=== PATIENT | female | born 1945 | race Caucasian/White ===

== ENCOUNTER 2016-12-13 06:10 | Inpatient (IN) | payer MEDICARE, MEDICAID ==
[~2016-12-13] VITALS: Ht 160 cm; Wt 76.9 kg
--- NOTE | ~2016-12-13 | FD ---
ADMIT: 12/13/2016 RM/LOC: 633 [facility] MR#: [id number] 2620 [facility] [address] [place] [id number] GONZALEZ PETERSASHLEY Jacobson [address] [address] Final Diagnosis SEX: F AGE: 71 : 1945 ADMISSION DATE: 12/13/2016 DISCHARGE DATE: 12/14/2016 FINAL DIAGNOSIS: Hiatal hernia. PROCEDURE: Laparoscopic hiatal hernia repair and gastropexy. KITA Arita / Dyllan Farah MD / naveen JOB #: [id number] CC: Dyllan Farah MD, Attending Physician Alvaro Falcon MD, Family Physician
--- NOTE | 2016-12-14 09:58 | CO ---
ADMIT: 12/13/2016 RM/LOC: 633 [facility] MR#: [id number] 2620 [facility] [address] [place], [place] [address] PETERS, YESENIA Jacobson [address] [address] Consultation SEX: F AGE: 71 : 1945 DATE OF CONSULTATION: 12/13/2016 ATTENDING PHYSICIAN: Dyllan Farah CONSULTING PHYSICIAN: Conrado Verde MD REASON FOR CONSULT: Medical evaluation in the setting of a patient with recent hiatal hernia repair, history of hypertension, mixed connective tissue disease, asthma. HISTORY OF PRESENT ILLNESS: The patient is a very pleasant 71-year-old female with a longstanding history of hiatal hernia. Intermittent melena. Iron deficiency anemia. Underwent hiatal hernia repair with and gastropexy. Sounds like it was quite an involved surgery by reading the op report. The patient currently denies any shortness of breath. No fevers. A little bit of pain but overall states is okay and tolerable. No recent chest pain. Did have recent sinusitis which she took antibiotics this last week and feels much improved from that. No more fevers over the last 24-48 hours. [place] like her symptoms had resolved. PAST MEDICAL HISTORY: 1. Hypertension. 2. Chronic back pain. 3. Mixed connective tissue disease. 4. Iron deficiency anemia. 5. Spinal stenosis, lumbar region. 6. Raynaud. 7. History of asthma. PAST SURGICAL HISTORY: Hysterectomy. FAMILY HISTORY: Cancer in mother and father. MEDICATIONS: She is on: 1. Flonase. 2. Guaifenesin. 3. Plaquenil. 4. Lamictal. 5. Omeprazole. 6. Symbicort. 7. Clonazepam. 8. Amlodipine. 9. Proventil p.r.n. Please see list for full details. REVIEW OF SYSTEMS: As per HPI. Otherwise, completely reviewed and negative. PHYSICAL EXAMINATION: VITAL SIGNS: Temperature 97.9, pulse 60, respiratory ADMIT: 12/13/2016 RM/LOC: 633 [facility] MR#: [id number] [address] [address] YESENIA PETERS [address] [address] Consultation SEX: F AGE: 71 : 1945 rate 20. She is saturating 97% on room air. Blood pressure 140/63. GENERAL: She is alert and oriented x3. No acute distress. Very pleasant female. HEENT: Normocephalic, atraumatic. Pupils equal, round, and reactive to light and accommodation. Extraocular muscles intact. Moist mucous membranes. NECK: No lymphadenopathy. Soft, supple. Trachea midline. LUNGS: Clear to auscultation bilaterally. No wheezes, rales, or rhonchi. Rare expiratory wheeze. HEART: Regular rate and rhythm. No murmurs, rubs, or gallops. ABDOMEN: Soft, nontender, nondistended. Bowel sounds present. She has overall nontender, soft. She has her port access sites with dressing on it without much major bleeding. EXTREMITIES: No cyanosis, clubbing, or edema. MUSCULOSKELETAL: 5/5 strength in all 4 extremities. NEUROLOGICAL: No focal deficits noted. Cranial nerves II through XII grossly intact. LABORATORY AND X-RAY DATA: Her hemoglobin the other day on the was 10.8. Platelets 287. ASSESSMENT: 1. Status post hiatal hernia with gastropexy. 2. Hypertension. 3. History of asthma. 4. Mixed connective tissue disease. PLAN: At this point in time, we will continue her home medications. We will schedule her Proventil given her history of asthma and a little bit of wheezing on exam. Otherwise, she looks like she is doing great. Continue pain control. Check the hemoglobin and followup as already planned by primary team. We will continue to follow along. Please call if questions. Conrado Verde MD/ geraldine JOB #: [id number] CC: Dyllan Farah, Attending Physician Alvaro Falcon, Family Physician
[2016-12-14] MEDS ORDERED: VITAMIN D350000 UNIT PO (14:37)
[2016-12-14] MEDS ORDERED: PLAQUENIL DPS200 MG PO (14:37)
[2016-12-14] MEDS ORDERED: PRILOSEC DPS20 MG PO (14:37)
[2016-12-14] MEDS ORDERED: NORVASC DPS10 MG PO (14:37)
[2016-12-14] MEDS ORDERED: KLONOPIN DPS1 MG PO (14:37)
[2016-12-14] MEDS ORDERED: DAILY MULTIPLE1 EAC1 PO (14:38)
[2016-12-14] MEDS ORDERED: FEOSOL-DPS325 MG PO (14:38)
[2016-12-14] MEDS ORDERED: SYMBICORT80 MCG/6.9 IH (14:38)
[2016-12-14] MEDS ORDERED: PROAIR RESPICL90 MCG IH (14:38)
[2016-12-14] MEDS ORDERED: HYDROCODON-ACET15 ML PO (14:39)
[2016-12-14] MEDS ORDERED: FLONASE 0.05% D16 GM NS (14:39)
--- NOTE | 2016-12-17 12:25 | OR ---
ADMIT: 12/13/2016 RM/LOC: 633 [facility] MR#: [id number] [address] [facility] [address] [place], [place] [address] YESENIA PETERS [address] [address] Operative/Delivery Room Report SEX: F AGE: 71 : 1945 SURGERY DATE: 12/13/2016 SURGEON: Dyllan Farah MD PREOPERATIVE DIAGNOSIS: History of chronic anemia and Corona's ulcers with large hiatal hernia. POSTOPERATIVE DIAGNOSIS: Large hiatal hernia with incarcerated stomach. PROCEDURE: Laparoscopic repair of this hiatal hernia and gastropexy. STONEMASON HELPER: Yossi Atkinson MD who was necessary for adequate exposure, retraction at completion of this case. ANESTHESIA: General endotracheal tube. ESTIMATED BLOOD LOSS: 30 mL or less. INDICATION FOR PROCEDURE: Please see H and P. PROCEDURE IN DETAIL: After the risks, benefits, possible complications, and the alternatives had been explained, and informed consent had been obtained, the patient was taken back to the operating room, underwent general endotracheal tube anesthesia, and the surgical field was prepped and draped in a sterile manner. An incision was made in the left upper quadrant. The Veress needle was inserted, the abdomen was insufflated with CO2. I placed a 5 mm port on the left lateral side to this. Placed camera to that port site and then placed a large port, right kind of epigastric port right subcostal, one more left subcostal 5 mm port. Liver retractor was placed. Connected to the Govind arm to the bed. You can see the first picture of this hiatal hernia with the majority of the stomach up there and it was twisted and stuck. Actually difficult case and just the overall hiatal hernia extended the time of this case an extra 45 minutes. Slowly started working on the right whitley and trying to figure out exactly where the sac was and some of this kind of the gastrohepatic ligament and vessels coming through there, what will we could free up. Ultimately ended up going to the greater curvature, taking the short gastrics and working that up. Allowed me a little more freedom to get some of that stomach out of there and then slowly we were able to get to a spot where we have this the hernia sac for where I could start working it off everything, laterally anteriorly and then felt like we finally got things down and dissected out nicely and posteriorly. Then we started kind of removing the sac from the apex being careful not to cause any problems with the esophagus or stomach. There was a big kind of ball of extra fat there at the lesser curve, this was all freed up and straightened out. Still did not feel like we had a great amount for a length of the esophagus and the right whitley was pretty wimpy. I started closing the crural defect the hiatal hernia with multiple Ethibond Endo stitches and tie knot. About 3/4 up it closed quite nicely and then things got so thinned out that I was worried anything was really going to hold it, Dr. Atkinson was as well far as stitches. I had the ADMIT: 12/13/2016 RM/LOC: 633 [facility] MR#: [id number] [address] [address] YESENIA PETERS [address] [place] [address] Operative/Delivery Room Report SEX: F AGE: 71 : 1945 majority of it like I said, closed at this point, but I just felt anything else, we are going to more tension and tear kind of that right crural. There was just no muscle there. I did not feel patching that there was really anything even patch to, if I used a piece of AlloDerm or something of that nature, it would just get kind of stuck right up into this hole. I do think it was going to cover, there was nothing really to attach it to. So ended up doing then a gastropexy. I did not feel comfortable with trying to wrap around there and have it kind of trying re-curl up into the chest cavity. So, I created a gastropexy right along the kind of anterior whitley there and out along the triangular ligament with 4 different stitches, just pexing it along there of the stomach. Then I used a two more EndoStitches, used the suture passer, bringing those out down lower along the greater curve of the stomach. So, we are going to have a pexy in 2 different spots and that is seen in picture #3 and picture #4. I removed the liver retractor and then tied down the gastropexy stitches at the greater curve. Those appeared to not be under any significant tension and holding things in good position. I then removed any irrigation, saw no signs of any bleeding or complications. Injected some 0.5% Marcaine for pain control in the incision sites. Closed the fascia of large port site with an 0-Polysorb suture using the suture passer. All the ports were removed. The skin was all closed with 4-0 Monocryl. She tolerated it well. She was extubated and taken to recovery room in stable and satisfactory condition. Dyllan Farah MD/ geraldine JOB #: [id number] CC: Dyllan Farah, Attending Physician Alvaro Falcon, Family Physician
[2017-01-11] MEDS ORDERED: GERITOL COMPLE1 EACH PO (11:53)
[2017-01-11] MEDS ORDERED: ONDANSETRON ODT4 MG PO (11:54)
[2017-01-11] MEDS ORDERED: PHENERGAN DPS25 MG PO (11:56)
[2017-01-11] MEDS ORDERED: REGLAN DPS5 MG PO (11:56)
[2017-01-11] MEDS ORDERED: PROVENTIL2.5 MG/3 M IH (11:57)
[2017-01-28] MEDS ORDERED: VITAMIN D50000 UNIT PO (21:27)
[2017-01-28] MEDS ORDERED: FLONASE 0.05% D16 GM NS (21:28)
[2017-01-28] MEDS ORDERED: PLAQUENIL DPS200 MG PO (21:28)
[2017-01-28] MEDS ORDERED: ZOFRAN ODT4 MG PO (21:28)
[2017-01-28] MEDS ORDERED: PRILOSEC DPS20 MG PO (21:29)
[2017-01-28] MEDS ORDERED: KLONOPIN DPS1 MG PO (21:29)
[2017-01-28] MEDS ORDERED: PROVENTIL HFA6.7 GM IH (21:29)
[2017-01-28] MEDS ORDERED: GERITOL COMPLE1 EACH PO (21:30)
[2017-01-28] MEDS ORDERED: PHENERGAN DPS25 MG PO (21:30)
[2017-01-28] MEDS ORDERED: LEXAPRO DPS10 MG PO (21:30)
[2017-01-28] MEDS ORDERED: SYMBICORT80 MCG/6.9 IH (21:30)
[2017-01-28] MEDS ORDERED: FEOSOL-DPS325 MG PO (21:30)
[2017-01-28] MEDS ORDERED: KEFLEX-DPS500 MG PO (21:31)
[2017-01-28] MEDS ORDERED: XARELTO20 MG PO (21:31)
[2017-01-28] MEDS ORDERED: XARELTO15 MG PO (21:31)
[2017-01-28] MEDS ORDERED: ERYTHROMYCIN250 M1 GT (21:32)
[2017-01-28] MEDS ORDERED: MAALOX DPS30 ML PO (21:32)
[2017-01-28] MEDS ORDERED: TYLENOL DPS325 MG PO (21:33)
[2017-02-07] MEDS ORDERED: ZOFRAN ODT4 MG PO (17:43)
[2017-02-07] MEDS ORDERED: PROVENTIL HFA6.7 GM IH (17:43)
[2017-02-07] MEDS ORDERED: FLONASE 0.05% D16 GM NS (17:43)
[2017-02-07] MEDS ORDERED: KLONOPIN DPS1 MG PO (17:43)
[2017-02-07] MEDS ORDERED: XARELTO20 MG PO (17:44)
[2017-02-07] MEDS ORDERED: TYLENOL DPS325 MG PO (17:44)
[2017-02-07] MEDS ORDERED: COLACE-DPS100 MG PO (17:44)
[2017-02-07] MEDS ORDERED: SYMBICORT80 MCG/6.9 IH (17:44)
[2017-02-07] MEDS ORDERED: LORTAB LIQUID D15 ML GT (17:45)
[2017-02-07] MEDS ORDERED: COGENTIN DPS1 MG GT (17:45)
[2017-02-07] MEDS ORDERED: PRILOSEC DPS20 MG GT (17:45)
== END 2016-12-14 11:20 | disposition home or self-care (01) | DRG 327 ==
LOC: WOR 06:10 → 6PED 06:10 → WOR 06:10 → 6PED 09:42
PROVIDERS: ADMIT Surgery
PROC: 0BQR4ZZ (ICD-10-PCS; principal; 2016-12-13)
PROC: 0DS64ZZ Reposition Stomach, Percutaneous Endoscopic Approach (ICD-10-PCS; principal; 2016-12-13)
DX: K44.0 Diaphragmatic hernia with obstruction, without gangrene (principal); M35.1 Other overlap syndromes; K25.9 Gastric ulcer, unspecified as acute or chronic, without hemorrhage or perforation; F32.9 Major depressive disorder, single episode, unspecified; F41.9 Anxiety disorder, unspecified; J45.909 Unspecified asthma, uncomplicated; I10 Essential (primary) hypertension; K21.9 Gastro-esophageal reflux disease without esophagitis; M54.9 Dorsalgia, unspecified; G89.29 Other chronic pain; M48.06 Spinal stenosis, lumbar region; I73.00 Raynaud's syndrome without gangrene

== ENCOUNTER 2016-12-17 17:56 | Emergency (ER) | payer MEDICARE, MEDICAID ==
[~2016-12-17 17:56] MED LIST: DAILY MULTIPLE1 EAC1 PO; FEOSOL-DPS325 MG PO; FLONASE 0.05% D16 GM NS; HYDROCODON-ACET15 ML PO; KLONOPIN DPS1 MG PO; NORVASC DPS10 MG PO; PLAQUENIL DPS200 MG PO; PRILOSEC DPS20 MG PO; PROAIR RESPICL90 MCG IH; SYMBICORT80 MCG/6.9 IH; VITAMIN D350000 UNIT PO
--- NOTE | 2017-01-04 11:52 | ER ---
ADMIT: 12/17/2016 RM/LOC: ER [facility] MR#: [id number] [address] [facility] [address] [place], [place] [address] MICAELA PETERSA Kavon [address] [address] Emergency Room Report SEX: F AGE: 71 : 1945 DATE: 12/17/2016 ADDENDUM: A 71-year-old female coming in with loose stools. She has only had liquids since her postop Tello, which was on Monday. She is concerned she has diarrhea. We gave her one Lomotil. She can use Imodium. I said that this should subside as they allow her to use the solid foods, but she is not allowed any quite yet. She should follow up as needed. She says she is a little nauseated, but that could be from the pain pills she takes, [place]. Also, wonder that can make her constipated, so we do not want her overshooting it. Follow up as directed. CONDITION ON DISCHARGE: Good. Alvaro Abdullahi MD/ geraldine JOB #: [id number] CC: Alvaro Abdullahi MD, Attending Physician
[2017-01-11] MEDS ORDERED: GERITOL COMPLE1 EACH PO (11:53)
[2017-01-11] MEDS ORDERED: ONDANSETRON ODT4 MG PO (11:54)
[2017-01-11] MEDS ORDERED: PHENERGAN DPS25 MG PO (11:56)
[2017-01-11] MEDS ORDERED: REGLAN DPS5 MG PO (11:56)
[2017-01-11] MEDS ORDERED: PROVENTIL2.5 MG/3 M IH (11:57)
[2017-01-28] MEDS ORDERED: VITAMIN D50000 UNIT PO (21:27)
[2017-01-28] MEDS ORDERED: FLONASE 0.05% D16 GM NS (21:28)
[2017-01-28] MEDS ORDERED: PLAQUENIL DPS200 MG PO (21:28)
[2017-01-28] MEDS ORDERED: ZOFRAN ODT4 MG PO (21:28)
[2017-01-28] MEDS ORDERED: PRILOSEC DPS20 MG PO (21:29)
[2017-01-28] MEDS ORDERED: PROVENTIL HFA6.7 GM IH (21:29)
[2017-01-28] MEDS ORDERED: KLONOPIN DPS1 MG PO (21:29)
[2017-01-28] MEDS ORDERED: FEOSOL-DPS325 MG PO (21:30)
[2017-01-28] MEDS ORDERED: PHENERGAN DPS25 MG PO (21:30)
[2017-01-28] MEDS ORDERED: LEXAPRO DPS10 MG PO (21:30)
[2017-01-28] MEDS ORDERED: GERITOL COMPLE1 EACH PO (21:30)
[2017-01-28] MEDS ORDERED: SYMBICORT80 MCG/6.9 IH (21:30)
[2017-01-28] MEDS ORDERED: XARELTO15 MG PO (21:31)
[2017-01-28] MEDS ORDERED: XARELTO20 MG PO (21:31)
[2017-01-28] MEDS ORDERED: KEFLEX-DPS500 MG PO (21:31)
[2017-01-28] MEDS ORDERED: ERYTHROMYCIN250 M1 GT (21:32)
[2017-01-28] MEDS ORDERED: MAALOX DPS30 ML PO (21:32)
[2017-01-28] MEDS ORDERED: TYLENOL DPS325 MG PO (21:33)
[2017-02-07] MEDS ORDERED: FLONASE 0.05% D16 GM NS (17:43)
[2017-02-07] MEDS ORDERED: KLONOPIN DPS1 MG PO (17:43)
[2017-02-07] MEDS ORDERED: PROVENTIL HFA6.7 GM IH (17:43)
[2017-02-07] MEDS ORDERED: ZOFRAN ODT4 MG PO (17:43)
[2017-02-07] MEDS ORDERED: COLACE-DPS100 MG PO (17:44)
[2017-02-07] MEDS ORDERED: XARELTO20 MG PO (17:44)
[2017-02-07] MEDS ORDERED: TYLENOL DPS325 MG PO (17:44)
[2017-02-07] MEDS ORDERED: SYMBICORT80 MCG/6.9 IH (17:44)
[2017-02-07] MEDS ORDERED: LORTAB LIQUID D15 ML GT (17:45)
[2017-02-07] MEDS ORDERED: COGENTIN DPS1 MG GT (17:45)
[2017-02-07] MEDS ORDERED: PRILOSEC DPS20 MG GT (17:45)
== END 2016-12-17 19:34 | disposition home or self-care (01) ==
LOC: ER 17:56
DX: K91.89 Other postprocedural complications and disorders of digestive system (principal); R19.7 Diarrhea, unspecified; R11.0 Nausea; I10 Essential (primary) hypertension; Z79.899 Other long term (current) drug therapy

== ENCOUNTER 2017-01-06 14:23 | Inpatient (IN) | payer MEDICARE, MEDICAID ==
[~2017-01-06] VITALS: Ht 160 cm; Wt 70.8 kg
--- NOTE | ~2017-01-06 | CO ---
ADMIT: 01/06/2017 RM/LOC: 422 [facility] MR#: [id number] 2620 [facility] [address] [place], [place] [address] YESENIA PETERS [address] [address] Consultation Report SEX: F AGE: 71 : 1945 Corrected: 01/09/2017 0742 njv/01/09/2017 1047 djs DATE OF CONSULTATION: 01/06/2017 ATTENDING PHYSICIAN: Alvaro Falcon CONSULTING PHYSICIAN: Yossi Atkinson MD HISTORY OF PRESENT ILLNESS: The patient is a 71-year-old female, well known to Dr. Farah, who recently had done a laparoscopic hiatal hernia repair, for anemia I believe, and Corona ulcers. She did not have a Tello fundoplication done, but did have a gastropexy done to keep the hernia reduced. For her postprocedure, she had initially done well, but she has developed some issues here recently with nausea, vomiting, and diarrhea. The diarrhea was quite significant. She has had some antibiotics I believe; some Bactrim and Flagyl and the diarrhea has since stopped, but has continued to have here over the last couple days, worsening nausea and vomiting. Denies really any significant abdominal discomfort. PAST MEDICAL HISTORY: Includes hypertension, low-back pain, anemia, spinal stenosis, Raynaud disease, and asthma. PAST SURGICAL HISTORY: Includes hysterectomy and a recent hiatal hernia repair done laparoscopically about a month ago. ALLERGIES: SHE HAS NO ALLERGIES. MEDICATIONS: Outlined in the hospital chart. FAMILY HISTORY: Noncontributory. SOCIAL HISTORY: Nondrinker and nonsmoker. REVIEW OF SYSTEMS: Denies headaches, chest pain, or shortness of breath. Admits to the nausea and vomiting. Denies abdominal discomfort. No hematologic, neurologic, or psychiatric issues. PHYSICAL EXAMINATION: GENERAL: She is afebrile. VITAL SIGNS: Stable. HEART: Regular. LUNGS: Clear. ABDOMEN: Soft and nondistended. Mildly tender over her left-sided subcostal port site as expected. No peripheral edema. No focal neurologic deficits. ASSESSMENT AND PLAN: The patient is a 71-year-old with persistent nausea and ADMIT: 01/06/2017 RM/LOC: 422 [facility] MR#: [id number] 2620 [facility] [address] [place], [place] [address] YESENIA PETERS [address] [place] [address] Consultation Report SEX: F AGE: 71 : 1945 vomiting. She has recovered from recent bout of diarrhea. At this point in time, her count is normal and her diarrhea has stopped. It does not sound like she is having any dysphagia issues. Ultimately, I suspect this is likely not a mechanical cause of her mechanical obstructive cause for her nausea or vomiting, but with fluid hydration if she does improve, she may need an upper GI series just to watch contrast goes through our esophagus in her stomach and exit her stomach make sure there was no obstructive pathology and if there is any concerns there, may ultimately need to do upper endoscopy evaluation, but suspect with conservative measures and fluid resuscitation, she will likely improve without more advanced intervention. Yossi Atkinson MD/ geraldine JOB #: [id number] CC: Alvaro Falcon, Attending Physician Alvaro Falcon, Family Physician Corrected: 01/09/2017 0742 njv/01/09/2017 1047 franko
[2017-01-11] MEDS ORDERED: GERITOL COMPLE1 EACH PO (11:53)
[2017-01-11] MEDS ORDERED: ONDANSETRON ODT4 MG PO (11:54)
[2017-01-11] MEDS ORDERED: PHENERGAN DPS25 MG PO (11:56)
[2017-01-11] MEDS ORDERED: REGLAN DPS5 MG PO (11:56)
[2017-01-11] MEDS ORDERED: PROVENTIL2.5 MG/3 M IH (11:57)
--- NOTE | 2017-01-20 10:23 | CO ---
ADMIT: 01/06/2017 RM/LOC: 422 [facility] MR#: [id number] 2620 [facility] [address] [place], [place] [address] YESENIA PETERS [address] [address] Consultation SEX: F AGE: 71 : 1945 DATE OF CONSULTATION: 01/06/2017 ATTENDING PHYSICIAN: Alvaro Falcon CONSULTING PHYSICIAN: Yossi Atkinson MD REASON FOR CONSULTATION: Persistent nausea and vomiting. HISTORY OF PRESENT ILLNESS: Yesenia is a very pleasant 71-year-old female, who is status post hiatal hernia repair back in November of this year, performed by Dr. Farah. Since her surgery, apparently she has had several episodes of nausea with emesis and diarrhea. She has been to her primary care doctor and to the ER multiple times where so far it looks like she was treated with p.o. Zofran and oral antibiotics. The Zofran worked well. However, the patient does not believe the oral antibiotics helped at all. She actually has been seen at our clinic by Dr. Farah in followup. I believe this was after her first episode where at that time pain resolved and the patient was doing well. This last episode of diarrhea happened about a week ago but stopped Easter Monday, so approximately 5 days ago. Her nausea and vomiting, however, started again Monday night. She describes her emesis as being black, but denies hematemesis. As of now, she has only been tolerating liquids. She denies any pain unless if you palpate in the left lower quadrant of her abdomen. Her last bowel movement was Monday. She also has had on and off chills since surgery. She has also had headaches. PAST MEDICAL HISTORY: Significant for hypertension, low back pain, anemia, spinal stenosis, Raynaud phenomenon, and asthma. PAST SURGICAL HISTORY: 1. Hiatal hernia repair in November of this year. 2. Hysterectomy. ALLERGIES: NO KNOWN DRUG ALLERGIES. MEDICATIONS: Well documented in chart. FAMILY HISTORY: Noncontributory. SOCIAL HISTORY: The patient denies any tobacco, alcohol, or illicit drug use. REVIEW OF SYSTEMS: CONSTITUTIONAL: The patient has had chills, but denies any fevers or night sweats. The rest of comprehensive 10-point review of systems was performed and all other systems are negative unless stated in HPI. PHYSICAL EXAMINATION: GENERAL: The patient is in no acute distress. She is alert and oriented. HEENT: Head is normocephalic and atraumatic. EOMS are intact. Conjunctivae ADMIT: 01/06/2017 RM/LOC: 422 [facility] MR#: [id number] [address] [address] YEESNIA PETERS [address] [place] [address] Consultation SEX: F AGE: 71 : 1945 free of icterus, erythema, or pallor. Pinnae, free of deformities. Nose, midline. No tracheal deviation. NECK: Supple. SKIN: Negative for jaundice, clubbing, edema, pallor, or cyanosis. LUNGS: Normal respiratory effort. HEART: Distal pulses intact. Regular rate and rhythm. ABDOMEN: Soft, nondistended, and tender in the left lower quadrant. NEURO: Grossly intact. ASSESSMENT: Persistent nausea and vomiting. PLAN: So far, the patient has been admitted and we will be receiving IV fluid resuscitation, antiemetics, and antibiotics. We will continue these measures and there is discussion of about potentially doing an EGD with her down the road. The final decision on upper endoscopy lies in the hands of Dr. Atkinson. In the meantime, we will watch her closely for any clinical progress. I discussed this plan with the patient to which she is in agreement of this plan, had all her questions answered and would like to proceed. Thank you for the consultation of this patient. KITA Arita / Yossi Atkinson MD / geraldine JOB #: [id number] CC: Alvaro Falcon, Attending Physician Alvaro Falcon, Family Physician
[2017-01-28] MEDS ORDERED: VITAMIN D50000 UNIT PO (21:27)
[2017-01-28] MEDS ORDERED: PLAQUENIL DPS200 MG PO (21:28)
[2017-01-28] MEDS ORDERED: ZOFRAN ODT4 MG PO (21:28)
[2017-01-28] MEDS ORDERED: FLONASE 0.05% D16 GM NS (21:28)
[2017-01-28] MEDS ORDERED: KLONOPIN DPS1 MG PO (21:29)
[2017-01-28] MEDS ORDERED: PROVENTIL HFA6.7 GM IH (21:29)
[2017-01-28] MEDS ORDERED: PRILOSEC DPS20 MG PO (21:29)
[2017-01-28] MEDS ORDERED: LEXAPRO DPS10 MG PO (21:30)
[2017-01-28] MEDS ORDERED: GERITOL COMPLE1 EACH PO (21:30)
[2017-01-28] MEDS ORDERED: SYMBICORT80 MCG/6.9 IH (21:30)
[2017-01-28] MEDS ORDERED: FEOSOL-DPS325 MG PO (21:30)
[2017-01-28] MEDS ORDERED: PHENERGAN DPS25 MG PO (21:30)
[2017-01-28] MEDS ORDERED: XARELTO15 MG PO (21:31)
[2017-01-28] MEDS ORDERED: XARELTO20 MG PO (21:31)
[2017-01-28] MEDS ORDERED: KEFLEX-DPS500 MG PO (21:31)
[2017-01-28] MEDS ORDERED: MAALOX DPS30 ML PO (21:32)
[2017-01-28] MEDS ORDERED: ERYTHROMYCIN250 M1 GT (21:32)
[2017-01-28] MEDS ORDERED: TYLENOL DPS325 MG PO (21:33)
--- NOTE | 2017-02-07 08:50 | HP ---
ADMIT: 01/06/2017 RM/LOC: 422 [facility] MR#: [id number] 2620 [facility] [address] [place], [place] [address] YESENIA PETERS [address] [address] History and Physical SEX: F AGE: 71 : 1945 DATE OF SERVICE: 01/06/2017 HISTORY OF PRESENT ILLNESS: Yesenia is a very pleasant 71-year-old female patient of Dr. Alvaro Falcon, who presented to the clinic today with complaints of persistent nausea and vomiting. She has been having frequent emesis since Monday. She has history of having gastropexy and hernia repair by Dr. Farah toward the end of November. Since then, she has had intermittent diarrhea as well as nausea. She was seen in the emergency room on December 17 for the diarrhea, it seemed to resolve itself within a few days. She was seen again on Monday in emergency room for persistent nausea and vomiting. At that time, they did a CT scan which was essentially within normal limits other than showing chronic cholelithiasis without evidence of cholecystitis and diverticulosis without evidence of diverticulitis. She did have a probable mild ileus with a few prominent loops of small bowel as well. At that time, they started her on Bactrim and Flagyl for possible diverticulitis. Since that time, she has continued to have frequent emesis. She states she throws up even small amounts of water and any fluids. She is even having a hard time keeping her pills down. She denies abdominal pain, fevers, chills, or body aches. She does complain of being fatigued. Denies chest pain, shortness of breath, or palpitations. Does have slight dizziness at times. She has not had a stool for the last couple of days, although, she has not eaten much either. While in clinic today, we went ahead and gave her 1 L of IV fluid and some IV Zofran to help with her nausea. While she was here, she did slow down her emesis for a short time. Abdominal flat plate was done in clinic today as well that showed no sign of ileus, but stone in her gallbladder was visualized. LABORATORY DATA: Labs done in clinic revealed a potassium of 2.9, sodium of 130, creatinine of 1.01. CBC showed a white blood cell count of 12.6, all of which is different from her labs that were drawn on Monday in the emergency room. PAST MEDICAL HISTORY: 1. Spinal stenosis. 2. Raynaud's. 3. Osteopenia. 4. Mixed connective tissue disease. 5. Iron-deficiency anemia. 6. Hypertension. PAST SURGICAL HISTORY: A knee scope and hysterectomy, and then recent gastropexy with hernia repair. FAMILY HISTORY: Both her mother and father are with a history of cancer. Two daughters, who are alive and well. One son alive and well and one son, who is . SOCIAL HISTORY: Denies alcohol use or abuse. Denies any recreational drug use or abuse. Does have a history of smoking, but this was only short-term and socially. ADMIT: 01/06/2017 RM/LOC: 422 [facility] MR#: [id number] [address] [place] [phone] [address] [place] [address] History and Physical SEX: F AGE: 71 : 1945 ALLERGIES: NO KNOWN DRUG ALLERGIES. MEDICATIONS: 1. Tylenol 1000 mg every 8 hours as needed for pain. 2. Albuterol nebulizer every 6 hours as needed for wheezing or shortness of breath. 3. Norvasc 10 mg p.o. daily. 4. Symbicort one puff as needed. 5. Klonopin 1 mg by mouth at bedtime. 6. Vitamin D 50,000 units twice a day on Monday and Monday. 7. Ferrous sulfate 325 mg three times a day with meals. 8. Flonase nasal spray as needed. 9. Mucinex 600 mg twice a day as needed. 10.Plaquenil 200 mg twice a day. 11.Lamictal 200 mg at bedtime. 12.Prilosec 40 mg per day. REVIEW OF SYSTEMS: Complete review of system was complete and otherwise negative as stated in HPI. PHYSICAL EXAMINATION: GENERAL: She is a fatigued woman, who appears slightly older than her stated age of 71. She is alert and appropriate, although, she is holding an emesis basin. VITAL SIGNS: Blood pressure 114/86, temp 36.4, pulse 100, respirations 16, and sats 98% on room air. SKIN: Warm and dry. No rashes. HEENT: Eyes, conjunctiva are clear. Pupils are reactive. Mouth and throat, she does have oral secretions are noted, no redness or swelling of her posterior pharynx. HEART: Regular rate and rhythm, slightly tachycardic. LUNGS: Clear throughout, no sign of respiratory distress. No adventitious. Lung sounds auscultated. ABDOMEN: Soft and round, bowel sounds hypoactive x4. Incisions are well healed. MUSCULOSKELETAL: Able to walk around clinic without issue. No obvious ADMIT: 01/06/2017 RM/LOC: 422 [facility] MR#: [id number] [address] [place] [id number] YESENIA PETERS [address] [place] [address] History and Physical SEX: F AGE: 71 : 1945 swelling. NEUROLOGIC: Alert and oriented. ASSESSMENT AND PLAN: We will go ahead and admit to [facility] for hypokalemia given her inability to keep oral medications down. I do not believe we would be able to replace her hypokalemia with oral medications. She has also had emesis since being in the clinic today. We will replace her electrolytes, start IV fluids. Consult Dr. Farah. I was able to speak with Dr. Farah regarding this patient earlier today, so he is aware that she is ill, but he is not aware of her admission yet. Case was discussed with Dr. Alvaro Falcon, who will take over her care at the hospital. All further orders per his request. Neeur Ibarra APRN / Alvaro Falcon MD / geraldine JOB #: [id number] CC: Alvaro Falcon, Attending Physician Alvaro Falcon, Family Physician
[2017-02-07] MEDS ORDERED: FLONASE 0.05% D16 GM NS (17:43)
[2017-02-07] MEDS ORDERED: PROVENTIL HFA6.7 GM IH (17:43)
[2017-02-07] MEDS ORDERED: KLONOPIN DPS1 MG PO (17:43)
[2017-02-07] MEDS ORDERED: ZOFRAN ODT4 MG PO (17:43)
[2017-02-07] MEDS ORDERED: XARELTO20 MG PO (17:44)
[2017-02-07] MEDS ORDERED: SYMBICORT80 MCG/6.9 IH (17:44)
[2017-02-07] MEDS ORDERED: TYLENOL DPS325 MG PO (17:44)
[2017-02-07] MEDS ORDERED: COLACE-DPS100 MG PO (17:44)
[2017-02-07] MEDS ORDERED: COGENTIN DPS1 MG GT (17:45)
[2017-02-07] MEDS ORDERED: PRILOSEC DPS20 MG GT (17:45)
[2017-02-07] MEDS ORDERED: LORTAB LIQUID D15 ML GT (17:45)
--- NOTE | 2017-02-08 08:30 | DS ---
ADMIT: 01/06/2017 RM/LOC: 422 [facility] MR#: [id number] 2620 [facility] [address] [place] [id number] YESENIA ANDERSON [address] [place] [address] Discharge Summary SEX: F AGE: 71 : 1945 ADMISSION DATE: 01/06/2017 DISCHARGE DATE: 01/10/2017 CONSULTATIONS: Yossi Atkinson MD FINAL DIAGNOSES: 1. Ileus improved. 2. Nausea and vomiting improved. 3. Status post gastropexy. 4. Questionable delayed gastric emptying. 5. Hypokalemia. REASON FOR ADMISSION: Please see H and P dictated by Neeru Ibarra APRN. However, Yesenia Anderson was admitted with nausea and vomiting following gastropexy. HOSPITAL COURSE: Admitted to the service of [facility] under the care of myself, Alvaro Falcon MD. Received consultations with Dr. Atkinson as well did undergo an EGD. Noted to have some esophageal retention of food secondary to some swelling. Also, presumptive delayed gastric emptying. Did aggressively treat her nausea. Received some antiemetics. She actually clinically improved to the point she was taking p.o., and she discharged to home. DISPOSITION: Home. DISCHARGE CONDITION: Stable. DISCHARGE MEDICATIONS: See medication reconciliation, it is reviewed and accurate. She will discharge to home. She will follow up with me in 2 weeks' time, and she will continue a gentle diet. Continue scheduled antiemetics. I discussed this plan with the patient, expressed understanding, was in agreement, and had no further questions. Alvaro Falcon MD/ modesto JOB #: [id number] CC: Alvaro Falcon MD, Attending Physician Alvaro Falcon MD, Family Physician
== END 2017-01-10 16:55 | disposition home or self-care (01) | DRG 389 ==
LOC: 4PCU 14:23
PROVIDERS: ADMIT Internal Medicine
DX: K56.7 Ileus, unspecified (principal); M35.1 Other overlap syndromes; J44.9 Chronic obstructive pulmonary disease, unspecified; E87.6 Hypokalemia; I10 Essential (primary) hypertension; R11.2 Nausea with vomiting, unspecified; E03.9 Hypothyroidism, unspecified; K80.20 Calculus of gallbladder without cholecystitis without obstruction; J45.909 Unspecified asthma, uncomplicated; K44.9 Diaphragmatic hernia without obstruction or gangrene; K57.90 Diverticulosis of intestine, part unspecified, without perforation or abscess without bleeding; M48.00 Spinal stenosis, site unspecified; I73.00 Raynaud's syndrome without gangrene; M85.879 Other specified disorders of bone density and structure, unspecified ankle and foot; Z87.891 Personal history of nicotine dependence; Z98.890 Other specified postprocedural states

== ENCOUNTER 2017-01-15 11:44 | Inpatient (IN) | payer MEDICARE, MEDICAID ==
[~2017-01-15] VITALS: Ht 160 cm; Wt 69.1 kg
[~2017-01-15 11:44] MED LIST changes: +GERITOL COMPLE1 EACH PO; +ONDANSETRON ODT4 MG PO; +PHENERGAN DPS25 MG PO; +PROVENTIL2.5 MG/3 M IH; +REGLAN DPS5 MG PO
--- NOTE | 2017-01-16 06:57 | HP ---
ADMIT: 01/15/2017 RM/LOC: 617 [facility] MR#: [id number] 2620 [facility] [address] [place], [place] [address] MICAELA PETERSA Kavon [address] [address] History and Physical SEX: F AGE: 71 : 1945 DATE OF SERVICE: CHIEF COMPLAINT: Nausea and vomiting. HISTORY OF PRESENT ILLNESS: This is a 71-year-old female, she has history of surgery for hiatal hernia just over a week ago. She was admitted approximately a week ago for persistent nausea and vomiting. At that time, she was then discharged few days ago, but unfortunately had continued symptoms. So, she presented for evaluation here today. She reports that she has had some problems of vomiting up undigested food. She reports that she had some chicken and peas few days ago, and last night, she vomited up some peas and she had the same thing happen this morning. We did a CAT scan, which showed a little postop changes, nothing severe. She was evaluated by surgery at last hospitalization. She had an esophagram and that showed some delayed emptying of the esophagus from the hiatal hernia repair and looks a little edematous. There was a little bit initial bolus when through, but not enough pressure to push the barium through ultimately. She denies any fevers or chills. Overall, with the nausea and vomiting, she feels fine, but because she is so nauseated, she really feels pretty bad. PAST MEDICAL HISTORY: Includes Raynaud, mixed connective tissue disorder, osteoporosis, spinal stenosis, chronic back pain, iron deficiency anemia, and hypertension. PAST SURGICAL HISTORY: Include a knee scope, hysterectomy, recent gastropexy, and hiatal hernia repair. FAMILY HISTORY: Mother and father , both with cancer. Two daughters are alive and well. One son is alive and one son is . She denies alcohol or drug use. History of smoking, but only short term and only socially, so she is currently not smoking. ALLERGIES: NONE. MEDICATIONS: See the admission medication list. REVIEW OF SYSTEMS: Other complete review of systems obtained and negative except as above. PHYSICAL EXAMINATION: VITAL SIGNS: Per the ER sheet, but these are stable. GENERAL: Chronically ill-appearing, appearing 71-year-old female in [id number] distress from nausea. HEENT: Head is normocephalic and atraumatic. Pupils equal, round, and reactive to light and accommodation. Her extraocular muscles are intact. Her throat is clear. NECK: Supple. Trachea midline. Thyroid not palpable. HEART: Regular rate and rhythm. LUNGS: Clear to auscultation bilaterally. ABDOMEN: Soft. Mild tenderness to epigastric pressure. ADMIT: 01/15/2017 RM/LOC: 617 [facility] MR#: [id number] [address] [address] YESENIA PETERS [address] [place] [address] History and Physical SEX: F AGE: 71 : 1945 EXTREMITIES: Lower extremities have no edema. Cranial nerves are intact. She can move her extremities equally bilaterally. She does have generalized weakness. LABORATORY AND X-RAY DATA: CT of her abdomen and pelvis were essentially unchanged. Urinalysis, unremarkable. CMP shows a potassium of 3.1, BUN of 13, creatinine 0.8, calcium 9.1, and glucose 186. CBC with a white count of 8.9, hemoglobin 13.9, and platelets of 325. ASSESSMENT AND PLAN: 1. Persistent nausea and vomiting of undigested food. 2. Likely esophageal dysfunction. 3. Recent gastroplasty for hiatal hernia. 4. Mixed connective tissue disorder. PLAN: The patient will be admitted to the hospital. Surgery will be consulted. I will give her a little IV fluid as well as IV potassium replacement. We discussed the nature of her problem that she may have some esophageal stricture, which may need operation, which does carry some risk to it. I will be anxious to see what Surgery decides I think we need to do for. She did have a gallstone in the past, I think it is reasonable to get an ultrasound of this to make sure this may not be contributing. Cristhian Pearce MD/ geraldine JOB #: [id number] CC: Alvaro Falcon, Attending Physician Alvaro Falcon, Family Physician
--- NOTE | 2017-01-22 20:44 | OR ---
ADMIT: 01/15/2017 RM/LOC: 617 [facility] MR#: [id number] 2620 [facility] [address] [place], [place] [address] YESENIA PETERS [address] [address] Operative/Delivery Room Report SEX: F AGE: 71 : 1945 SURGERY DATE: 01/16/2017 SURGEON: Marvin Galaviz MD PREOPERATIVE DIAGNOSES: Dysphagia and vomiting. POSTOPERATIVE DIAGNOSIS: Esophagitis. PROCEDURE: Esophagogastroduodenoscopy with 18 mm balloon dilatation of the GE junction. ANESTHESIA: IV general. DESCRIPTION OF PROCEDURE: The patient was taken to the endoscopy suite and placed left side down on her hospital cart. A bite block was placed and IV sedation was established. The upper endoscope was advanced through the oropharynx into the esophagus without difficulty. The scope was pushed under visualization to the gastroesophageal junction where there was no food bolus. There was also no apparent stricture at this level and mild surrounding inflammation. The scope was advanced into the stomach. There was some liquid in the stomach as well as peas from prior meal. The stomach distended normally. The pylorus was patent and intubated. The first and second portions of the duodenum appeared normal on inspection. The scope was withdrawn to the stomach. The antrum, body, and fundus were otherwise unremarkable. The scope was withdrawn to the gastroesophageal junction. Decision was made for balloon dilatation. This was performed to 7 shorty, which was a diameter of 18 mm with balloon under visualization. This did not cause any trauma to the surface of the mucosa. The balloon was deflated and withdrawn. The remainder of the esophageal mucosa was normal upon withdrawal of the scope. The patient tolerated the procedure well and transferred to the recovery area in stable condition. Marvin Galaviz MD/ geraldine JOB #: [id number] CC: Alvaro Falcon, Attending Physician Alvaro Falcon, Family Physician
--- NOTE | 2017-01-23 06:57 | CO ---
ADMIT: 01/15/2017 RM/LOC: 617 [facility] MR#: [id number] 2620 [facility] [address] [place], [place] [id number] YESENIA PETERS [address] [address] Consultation SEX: F AGE: 71 : 1945 DATE OF CONSULTATION: 01/19/2017 ATTENDING PHYSICIAN: Alvaro Falcon CONSULTING PHYSICIAN: Kevin Humphreys MD CHIEF COMPLAINT: Mastoiditis. HISTORY OF PRESENT ILLNESS: Yesenia is 71-year-old. She is admitted for evaluation of gastrointestinal disorder. She is 1 month post-stomach surgery and has developed intractable nausea, vomiting, and dizziness during which time, workup included MRI scan of brain. The intracranial contents appear normal and brain appears normal, but she has abnormal right maxillary sinus with findings most consistent with acute or active mastoiditis. There appears to be fluid within the mastoid cells and mild enhancement. The left mastoid appears normal and the paranasal sinuses appear normal. She denies recent hearing change, denies otalgia, and has had no otorrhea. She states through the years, she has had intermittent infections and intermittent ear drainage. PHYSICAL EXAMINATION: HEENT: Ears show the canals to be patent, very small amount of normal-appearing wax. The right TM is markedly sclerotic. The middle ear appeared free of effusion or purulent. The left TM is mildly dull, mildly sclerotic, but transparent. No middle ear effusion. Nose, mouth, and pharynx clear. No exudate or purulence. IMPRESSION: Abnormal CT with findings consistent with right mastoiditis, but without physical findings of acute middle ear disorder. The sclerotic appearance of the right tympanic membrane may indicate a chronic nature to her mastoid appearance on MRI. Without acute hearing change, otalgia, otorrhea, or middle ear effusion, I do not feel the mastoid findings represent acute mastoiditis and doubt that the mastoid or inner ear a factor in producing her intractable nausea and vomiting. I spoke with Dr. Alvaro Falcon, he will continue to treat with supportive care and symptom control. Continue gastrointestinal workup. Kevin Humphreys MD/ geraldine JOB #: [id number] CC: Alvaro Falcon, Attending Physician Alvaro Falcon, Family Physician
--- NOTE | 2017-01-24 13:26 | CO ---
ADMIT: 01/15/2017 RM/LOC: 617 [facility] MR#: [id number] 2620 [facility] [address] [place], [place] [address] YESENIA PETERS [address] [address] Consultation SEX: F AGE: 71 : 1945 Corrected: 01/17/2017 0645 njv DATE OF CONSULTATION: 01/16/2017 ATTENDING PHYSICIAN: Alvaro Falcon CONSULTING PHYSICIAN: Dyllan Farah MD REASON FOR CONSULTATION: Dysphagia. HISTORY OF PRESENT ILLNESS: This patient is a 71-year-old female who I am well familiar with. She actually had a hiatal hernia repair back in early November and actually I think it has been like six weeks or so ago, and I repaired her hiatal hernia and did a gastropexy, but I did not actually do a wrap for worried of getting a too tight and actually this is the loosest that I ever repaired a hiatal hernia. She did well originally, then she ended up getting some problems with diarrhea. Almost sound like she had the flu, vomiting, and then since that time, she has had more problems with solid food. She was just recently in the hospital. Dr. Atkinson was on and seeing her in consultation. They did not do any scope. She has had CT. She had an upper GI that did show that she had full when I looked at it and went through, but then things would get hung up. At this point, though she was doing okay with liquids taken by at home and then she ate fried chicken. She has no dentures. I do not think she can chew well, and then she kept putting peas and mashed potatoes and everything else on top of it, which now she states to me and no one has reported this to me that she has actually been throwing particles of food up over the last several days. So, I think there is a high chance she has a food bolus stuck there and needs an EGD, possible dilatation. That is what the plan is. Nothing else otherwise significant has changed one iota from my previous dictation H and P, consult from Dr. Atkinson in the past. PLAN: EGD. Dyllan Farah MD/ geraldine JOB #: [id number] CC: Alvaro Falcon, Attending Physician Alvaro Falcon, Family Physician Dyllan Farah MD Corrected: 01/17/2017 0645 njv
--- NOTE | 2017-01-25 09:41 | ER ---
ADMIT: 01/15/2017 RM/LOC: 617 [facility] MR#: [id number] 2620 [facility] [address] [place] [id number] YESENIA PETERS [address] [address] Emergency Room Report SEX: F AGE: 71 : 1945 DATE: 01/15/2017 ADDENDUM: CHIEF COMPLAINT: Intractable vomiting. HISTORY OF PRESENT ILLNESS: This 71-year-old was discharged on Monday from the hospital. On Monday, she started vomiting again. She has not been able to keep anything down, so came back to the ER. I did call Dr. Pearce, he is admitting. I did contact Dr. Farah, he wants her n.p.o. after midnight for possible EGD in the morning. IMPRESSION: Intractable vomiting with esophageal dysfunction. KITA Toribio / Enrike Parks MD / modl JOB #: [id number] CC: Alvaro Falcon MD, Attending Physician Alvaro Falcon MD, Family Physician
--- NOTE | 2017-01-26 11:45 | NUR ---
PT WAS TAKEN OFF OF HEPARIN DRIP AT 1140 AFTER CONSULTING WITH PHARM ON HER MOST RECENT PTT AND THE EXPECTED TIME IT WOULD TAKE FOR THE XARELTO TO BECOME ACTIVE. PT CURRENTLY HAS NS RUNNING AND THE TUBING HAS BEEN REPLACED.
[2017-01-28] MEDS ORDERED: VITAMIN D50000 UNIT PO (21:27)
[2017-01-28] MEDS ORDERED: PLAQUENIL DPS200 MG PO (21:28)
[2017-01-28] MEDS ORDERED: ZOFRAN ODT4 MG PO (21:28)
[2017-01-28] MEDS ORDERED: FLONASE 0.05% D16 GM NS (21:28)
[2017-01-28] MEDS ORDERED: PROVENTIL HFA6.7 GM IH (21:29)
[2017-01-28] MEDS ORDERED: PRILOSEC DPS20 MG PO (21:29)
[2017-01-28] MEDS ORDERED: KLONOPIN DPS1 MG PO (21:29)
[2017-01-28] MEDS ORDERED: SYMBICORT80 MCG/6.9 IH (21:30)
[2017-01-28] MEDS ORDERED: LEXAPRO DPS10 MG PO (21:30)
[2017-01-28] MEDS ORDERED: FEOSOL-DPS325 MG PO (21:30)
[2017-01-28] MEDS ORDERED: GERITOL COMPLE1 EACH PO (21:30)
[2017-01-28] MEDS ORDERED: PHENERGAN DPS25 MG PO (21:30)
[2017-01-28] MEDS ORDERED: XARELTO20 MG PO (21:31)
[2017-01-28] MEDS ORDERED: XARELTO15 MG PO (21:31)
[2017-01-28] MEDS ORDERED: KEFLEX-DPS500 MG PO (21:31)
[2017-01-28] MEDS ORDERED: ERYTHROMYCIN250 M1 GT (21:32)
[2017-01-28] MEDS ORDERED: MAALOX DPS30 ML PO (21:32)
[2017-01-28] MEDS ORDERED: TYLENOL DPS325 MG PO (21:33)
--- NOTE | 2017-01-30 11:05 | OR ---
ADMIT: 01/15/2017 RM/LOC: 617 [facility] MR#: [id number] 2620 [facility] [address] [place], [place] [address] YESENIA PETERS [address] [address] Operative/Delivery Room Report SEX: F AGE: 71 : 1945 SURGERY DATE: 01/23/2017 SURGEON: Marvin Galaviz MD PREOPERATIVE DIAGNOSES: 1. Nausea. 2. Gastroparesis. POSTOPERATIVE DIAGNOSES: 1. Nausea. 2. Gastroparesis. PROCEDURE: Esophagogastroduodenoscopy with 20-St Helenian percutaneous endoscopic gastrostomy tube insertion. ANESTHESIA: IV sedation. ESTIMATED BLOOD LOSS: 5 mL. DESCRIPTION OF PROCEDURE: The patient was taken to the endoscopy suite and placed supine on her hospital cart. A bite-block was placed and IV sedation was established. The upper endoscope was advanced through the oropharynx into the esophagus without difficulty. The scope was pushed under visualization to the stomach. No stricture was seen in the distal esophagus or GE junction. Air was used to insufflate the stomach. Transillumination in the left upper quadrant was performed and one-to-one finger indentation was also performed in the mid body of the stomach. The area on the abdomen at this site was prepped and draped in the standard surgical fashion. A 5 mm incision was made at this site. The stomach was then cannulated with a large gauge Angiocath under endoscopic visualization. Guidewire was advanced via the Angiocath and grasped with the endoscopic snare. The wire was withdrawn through the oropharynx. The 20-St Helenian gastrostomy tube was advanced over the wire and then grasped and pulled through the abdominal wall till that was snug. The plastic bar, clamp, and cap were placed on the tubing. The upper endoscope was advanced through the oropharynx and esophagus to the stomach which showed appropriate position of the mushroom of the catheter in the mid body of the stomach with no bleeding. A dressing was applied. The scope was withdrawn and air was suctioned. The patient tolerated the procedure well and transferred to the recovery area in stable condition. Marvin Galaviz MD/ geraldine JOB #: [id number] CC: Alvaro Falcon, Attending Physician Alvaro Falcon, Family Physician
--- NOTE | 2017-02-07 08:50 | DS ---
ADMIT: 01/15/2017 RM/LOC: 617 [facility] MR#: [id number] 2620 [facility] [address] [place], [place] [address] YESENIA PETERS [address] [address] Discharge Summary SEX: F AGE: 71 : 1945 ADMISSION DATE: 01/15/2017 DISCHARGE DATE: 01/27/2017 CONSULTATIONS: Marvin Galaviz MD, general surgery. PROCEDURES: PEG (percutaneous endoscopic gastrostomy) tube placement. FINAL DIAGNOSES: 1. Gastroparesis. 2. Acid reflux. 3. Intractable nausea, but improved. 4. Right upper extremity DVT (deep venous thrombosis) associated with PICC (peripherally inserted central catheter) line. 5. Right-sided mastoiditis, on treatment. 6. Malnourishment. 7. Hypertension, much improved. No longer requiring any antihypertensive regimen. 8. Unintentional weight loss. 9. Adjustment reaction on SSRI (Selective Serotonin Reuptake Inhibitor). 10.Reglan intolerance. She had a very slight quiver of her lower lip on day of discharge. No other symptoms. She states that this does come and go at times. We will go ahead and discontinue her Reglan as I do not want her to develop cardiac dyskinesia. She is initiated on erythromycin at time of discharge. 11.Need for likely up to 90 days of tube feeds secondary to reflux and gastroparesis. REASON FOR ADMISSION: Please see H and P. However, briefly, Yesenia is admitted with nausea and vomiting as well as unintentional weight loss. Please see H and P dictated by Dr. Pearce. HOSPITAL COURSE: She is admitted to the service of [facility] under the care of Dr. Pearce. Her care is transitioned to myself. I do continue to work with the general surgeons as well as continue further diagnostic workup. She does have retained contents in her stomach from days prior to her admission. She does have retained contents in her esophagus as well. Ultimately diagnosed with severe gastroparesis. [place] this could be secondary just to manipulation of the gut previously with surgery. Also, does have some associated inflammation around the esophagus as well. She is maintained on Reglan and actually after discussion we do place her on elective PEG tube for tube feeding secondary to unintentional weight loss, malnourishment as well as inability to maintain adequate p.o. She tolerated this procedure well and she did tolerate tube feeds. She does have some pain in her right upper extremity. Ultimately diagnosed with a DVT associated with her PICC line. She is initiated on heparin. She has no evidence of bleeding. After full anticoagulation she is transitioned to Xarelto. We plan on anticoagulating her for three months total time as it is a provoked DVT associated with a PICC line. ADMIT: 01/15/2017 RM/LOC: 617 [facility] MR#: [id number] 2620 [place] [id number] YESENIA PETERS [address] [place] [address] Discharge Summary SEX: F AGE: 71 : 1945 The patient did have dizziness as well. Did stop her antihypertensive agents secondary to some borderline blood pressures. I ultimately did repeat imaging of her brain to rule out other alternate etiologies of her nausea and dizziness. It appears that she does have some right-sided mastoiditis. Dr. Humphreys did evaluate the patient. She does have some scarring of the tympanic membrane. Does not appear to be active at this time. However, we do elect to treat her empirically with antibiotic therapy. She will require two additional days after discharge of just oral Keflex. She does have a faint tremor of her lower lip at time of discharge. This is new. She does not have any other severe facial movements or involuntary movements. Concerned this could be Reglan intolerance. We will go ahead and stop the Reglan. We do not want to develop any permanent tardive dyskinesia. I will go ahead and initiate her on some erythromycin base for its prokinetic properties as well. We will go ahead and continue her on her current tube feeds. I will discharge her to home with Home Health Care. She is going to go live with her daughter and she will see myself and Dr. Galaviz in approximately one weeks' time. DISPOSITION: Home with Home Health Care. DISCHARGE CONDITION: Stable. DISCHARGE MEDICATIONS: See medication reconciliation, reviewed and accurate. DISCHARGE INSTRUCTIONS: Discharge to home. Follow up with repeat laboratories on Monday at [facility]. She will call [facility] with an update to make sure that she does have resolution of the faint tremor of her lower lip. If she does have continued symptoms or does worsen, we will have to consider ADMIT: 01/15/2017 RM/LOC: 617 [facility] MR#: [id number] [address] [place] [id number] [address]YES[address] [place] [address] Discharge Summary SEX: F AGE: 71 : 1945 additional medical therapy. We will also go ahead and have her see myself as well as Dr. Douglas in one weeks' time. I discussed this plan with the patient, expressed standing, was in agreement and had no further questions. Total of 35 minutes spent on discharge activities of this patient. Alvaro Falcon MD/ naveedg JOB #: [id number] CC: Alvaro Falcon MD, Attending Physician Alvaro Falcon MD, Family Physician MD Marvin Huertas MD Thomas S Nabity, MD
[2017-02-07] MEDS ORDERED: ZOFRAN ODT4 MG PO (17:43)
[2017-02-07] MEDS ORDERED: FLONASE 0.05% D16 GM NS (17:43)
[2017-02-07] MEDS ORDERED: PROVENTIL HFA6.7 GM IH (17:43)
[2017-02-07] MEDS ORDERED: KLONOPIN DPS1 MG PO (17:43)
[2017-02-07] MEDS ORDERED: SYMBICORT80 MCG/6.9 IH (17:44)
[2017-02-07] MEDS ORDERED: TYLENOL DPS325 MG PO (17:44)
[2017-02-07] MEDS ORDERED: COLACE-DPS100 MG PO (17:44)
[2017-02-07] MEDS ORDERED: XARELTO20 MG PO (17:44)
[2017-02-07] MEDS ORDERED: LORTAB LIQUID D15 ML GT (17:45)
[2017-02-07] MEDS ORDERED: COGENTIN DPS1 MG GT (17:45)
[2017-02-07] MEDS ORDERED: PRILOSEC DPS20 MG GT (17:45)
== END 2017-01-27 14:50 | disposition home health service (06) | DRG 392 ==
LOC: ER 11:44 → 6PED 14:45
PROVIDERS: ADMIT Internal Medicine
PROC: 0D748ZZ Dilation of Esophagogastric Junction, Via Natural or Artificial Opening Endoscopic (ICD-10-PCS; principal; 2017-01-16)
PROC: 3E0436Z Introduction of Nutritional Substance into Central Vein, Percutaneous Approach (ICD-10-PCS; 2017-01-18)
PROC: 02HV33Z Insertion of Infusion Device into Superior Vena Cava, Percutaneous Approach (ICD-10-PCS; 2017-01-18)
PROC: 3E0G76Z Introduction of Nutritional Substance into Upper GI, Via Natural or Artificial Opening (ICD-10-PCS; 2017-01-23)
PROC: 0DH63UZ Insertion of Feeding Device into Stomach, Percutaneous Approach (ICD-10-PCS; 2017-01-23)
DX: K31.84 Gastroparesis (principal); E46 Unspecified protein-calorie malnutrition; R13.10 Dysphagia, unspecified; I82.621 Acute embolism and thrombosis of deep veins of right upper extremity; K22.2 Esophageal obstruction; M35.1 Other overlap syndromes; T82.868A Thrombosis due to vascular prosthetic devices, implants and grafts, initial encounter; I10 Essential (primary) hypertension; R11.2 Nausea with vomiting, unspecified; K30 Functional dyspepsia; K20.9 Esophagitis, unspecified; H70.11 Chronic mastoiditis, right ear; I73.00 Raynaud's syndrome without gangrene; M81.0 Age-related osteoporosis without current pathological fracture; M48.00 Spinal stenosis, site unspecified; M54.9 Dorsalgia, unspecified; G89.29 Other chronic pain; R73.9 Hyperglycemia, unspecified; F32.9 Major depressive disorder, single episode, unspecified; Z98.890 Other specified postprocedural states; G25.2 Other specified forms of tremor; T45.0X5A Adverse effect of antiallergic and antiemetic drugs, initial encounter

== ENCOUNTER 2017-01-29 23:14 | Inpatient (IN) | payer MEDICARE, MEDICAID ==
[~2017-01-29] VITALS: Ht 160 cm; Wt 70.4 kg
[~2017-01-29 23:14] MED LIST changes: +ERYTHROMYCIN250 M1 GT; +KEFLEX-DPS500 MG PO; +LEXAPRO DPS10 MG PO; +MAALOX DPS30 ML PO; +PROVENTIL HFA6.7 GM IH; +TYLENOL DPS325 MG PO; +VITAMIN D50000 UNIT PO; +XARELTO15 MG PO; +XARELTO20 MG PO; +ZOFRAN ODT4 MG PO
--- NOTE | 2017-01-30 19:30 | ER ---
ADMIT: 01/30/2017 RM/LOC: 509 [facility] MR#: [id number] 2620 [facility] [address] [place], [place] [address] PETERSYESENIA [address] [address] Emergency Room Report SEX: F AGE: 71 : 1945 DATE: 01/29/2017 CHIEF COMPLAINT: Vomiting. HISTORY OF PRESENT ILLNESS: The patient is a 71-year-old female with intractable vomiting since having a fundoplication on December 13 and then PEG tube on January 23 for protracted vomiting, was transferred down for [facility] due to protracted vomiting and reluctance of hospitalist or General Surgery staff at [facility] to admit. Reviewed lab from [facility] with normal CBC, CMP, lipase, INR, and urinalysis. Lactic was 1.3. Magnesium 1.6. The patient was treated with IV fluids, Phenergan, Zofran, magnesium, and then transferred. The patient had a normal bowel movement today according to family. The patient is strictly PEG tube fed in the semi-upright position, underwent ultrasound three weeks ago that showed large gallstone, but no evidence of cholecystitis. PAST MEDICAL HISTORY: ALLERGIES: REGLAN. MEDICATIONS: Please see nurse's MAR. ILLNESSES: Hypertension, gastroparesis, asthma, anemia, DVT treated with Xarelto, GERD, osteoporosis, depression, anxiety, Raynaud phenomenon, mixed connective tissue disorder, spinal stenosis with chronic back pain, and iron deficiency anemia. OPERATIONS: Tello fundoplication on December 13, PEG tube on January 23, umbilical herniorrhaphy, hysterectomy, and knee scope remote past. SOCIAL HISTORY: Nonsmoker. Nondrinker. No illicit drugs. FAMILY HISTORY: Negative per chart review. REVIEW OF SYSTEMS: A 12-point review of systems negative for all other systems, illnesses, or operations except as outlined above. PHYSICAL EXAMINATION: VITAL SIGNS: Temp 97.8, pulse 94, respirations 18, BP 124/71, and SaO2 of 96% on room air. GENERAL: Nontoxic, non-diaphoretic without jaundice or icterus. HEENT: Normocephalic. No evidence of epistaxis, rhinorrhea, or otorrhea. NECK: Supple without lymphadenopathy or thyromegaly. CHEST: Clear. Breath sounds equal. HEART: Regular rate and rhythm without murmur, gallop, or edema. ABDOMEN: PEG tube noted. Nontender and nondistended. Bowel sounds hypoactive. EXTREMITIES: No evidence of Homans sign, synovitis, or dermatitis. NEUROLOGIC: EOMI. PERRLA. No evidence of drift, dysarthria, or ataxia. Gait not assessed. ADMIT: 01/30/2017 RM/LOC: 509 [facility] MR#: [id number] [address] [place] [id number] YESENIA PETERS [address] [place] [address] Emergency Room Report SEX: F AGE: 71 : 1945 MEDICAL DECISION MAKING: Reviewed record from [facility], agree with normal lab treatment. CT of the abdomen and pelvis here showed large gallstone. No evidence of bowel obstruction. Slight esophagitis noted and gastritis. Discussed findings with Dr. Verde, who agreed to admit strongly encourage surgical evaluation for cholecystectomy suspect a ball valve effect of large gallstone in the neck of the gallbladder when she is in the semi-upright position. DIAGNOSES: 1. Intractable vomiting, status post fundoplication. 2. Cholelithiasis suspect biliary colic associated with intractable vomiting. RECOMMENDATION: Admit Med/Surg for Dr. Falcon. ADMISSION/DISCHARGE CONDITION: Stable. The patient is a full code. Hood Jeffers MD/ geraldine JOB #: [id number] CC: Alvaro Falcon MD, Attending Physician Alvaro Falcon MD, Family Physician MD Dyllan Reece MD
--- NOTE | 2017-01-31 08:26 | CO ---
ADMIT: 01/30/2017 RM/LOC: 509 [facility] MR#: [id number] 2620 [facility] [address] [place], [place] [address] YESENIA ANDERSON [address] [address] Consultation SEX: F AGE: 71 : 1945 DATE OF CONSULTATION: 01/30/2017 ATTENDING PHYSICIAN: Alvaro Falcon CONSULTING PHYSICIAN: Hood Salcedo MD REASON FOR CONSULTATION: Mixed connective tissue disease. HISTORY OF PRESENT ILLNESS: Mrs. Anderson is a very pleasant female in for significant nausea and vomiting. She does carry a diagnosis of overlap connective tissue disease and follows with Dr. Douglas. She states that those symptoms which had previously included arthralgias and Raynaud's, have been doing fairly well. She was admitted for refractory nausea and vomiting. She relates these to an elective gastropexy and laparoscopic hiatal hernia repair on 12/13/2016. Since then she has been admitted a couple of times for refractory nausea and vomiting. According to Dr. Falcon's last note, she does have gastroparesis and there is a suggestion of having her see Surgery or Gastroenterology. She specifically notes nausea and vomiting. She does have a PEG tube and is unable to take things by mouth. She denies worsening Raynaud's, arthritis, rash or photosensitivity, mouth sores, fevers, night sweats; does note a 20-pound weight loss for the past month or so due to inability to keep down solids. She denies significant abdominal pain currently noting that her symptoms are much better controlled while in the hospital. PAST MEDICAL HISTORY: 1. Hypertension. 2. Gastroparesis. 3. Asthma. 4. Anemia. 5. History of DVT. 6. GERD. 7. Osteoporosis. 8. Depression. 9. Anxiety. 10.Overlap connective tissue disease. 11.Spinal stenosis with chronic pain. 12.Iron deficiency anemia. 13.History of gastropexy and hiatal hernia repair. 14.PEG placement on 01/23/2017. 15.Hysterectomy. 16.History of right knee arthroscopy. SOCIAL HISTORY: She lives independently in [place]. She does not smoke. FAMILY HISTORY: Negative for autoimmune or rheumatic disease. REVIEW OF SYSTEMS: Is otherwise per the HPI, are reviewed and negative. OBJECTIVE: VITAL SIGNS: Blood pressure is 167/91, pulse 89, respirations 12. ADMIT: 01/30/2017 RM/LOC: 509 [facility] MR#: [id number] [address] [address] YESENIA ANDERSON [address] [place] [address] Consultation SEX: F AGE: 71 : 1945 GENERAL: She is pleasant, lying comfortably in bed. HEENT: Head, atraumatic and normocephalic. No scleral icterus, no conjunctival injection. Mucous membranes, no ulceration. HEART: Regular rate and rhythm. LUNGS: Clear. ABDOMEN: Soft and nontender, has a gastric tube present. It does not appear distended. EXTREMITIES: No peripheral edema. MUSCULOSKELETAL: No synovitis or erythema to the upper or lower extremities. SKIN: Normal without rash. LAB AND X-RAY DATA: Noted in the computer record through Dr. Douglas's office with an abnormal FLORENTIN, with SSA, SSB, COMMUNITY FUNDRAISER, and anti-chromatin antibodies. IMPRESSION: 1. Overlap connective tissue disease which appears to be clinically doing well. 2. Refractory nausea and vomiting. PLAN: I do not see any evidence of active autoimmune disease and do not feel it is responsible for her nausea, vomiting, or GI symptoms. I spoke with Dr. Falcon, and she will continue to work with Dr. Falcon as well as the surgeons and possibly gastroenterologists for further evaluation. I did state to Dr. Falcon that if her Plaquenil needs to be held, that will be acceptable until she follows up with Dr. Douglas once her GI symptoms have resolved. Thank you for the consultation. Please feel free to call with any questions or concerns. Hood Salcedo MD/ geraldine JOB #: [id number] CC: Alvaro Falcon, Attending Physician Alvaro Falcon, Family Physician
--- NOTE | 2017-01-31 14:15 | CO ---
ADMIT: 01/30/2017 RM/LOC: 509 [facility] MR#: [id number] 2620 [facility] [address] [place], [place] [address] YESENIA PETERS [address] [address] Consultation SEX: F AGE: 71 : 1945 DATE OF CONSULTATION: 01/30/2017 ATTENDING PHYSICIAN: Alvaro Falcon CONSULTING PHYSICIAN: Dyllan Farah MD REASON FOR CONSULTATION: Persistent nausea and vomiting. HISTORY OF PRESENT ILLNESS: Yesenia is a very pleasant 71-year-old female, who has had complicated history with her nausea and vomiting for the last month or so. She underwent Tello fundoplication laparoscopically, performed by Dr. Farah and Dr. Atkinson on 12/13/2016. Since then, she has had this persistent nausea and vomiting. She has actually been admitted twice previously for this where she has underwent 2 EGDs with the later one also having a G-tube placed. After the last admission, the patient has been home and been feeling fine up until yesterday where she had a full day of nausea and vomiting. She was unable to keep any food down, but denies any hematemesis. She further denies any pain or diarrhea or constipation, dark or bloody stools. Dr. Falcon is the admitting physician, which at that time this morning ordered a HIDA scan, which revealed filling of the gallbladder at 35 minutes, but 0% ejection fraction. Thus, we have been consulted. PAST MEDICAL HISTORY: Unchanged from previous admission. PAST SURGICAL HISTORY: Please see HPI. ALLERGIES: REGLAN. MEDICATIONS: Well documented in chart. FAMILY HISTORY: Noncontributory. SOCIAL HISTORY: The patient denies any tobacco, alcohol, or illicit drug use. REVIEW OF SYSTEMS: CONSTITUTIONAL: The patient denies any fever, chills, or night sweats. The rest of a comprehensive 10-point review of systems was performed, and all other systems are negative. PHYSICAL EXAMINATION: GENERAL: The patient is in no acute distress. She is alert and oriented. HEENT: Head is normocephalic and atraumatic. EOMS are intact. Conjunctivae are free of icterus, erythema, or pallor. Pinnae free of deformities. Nose is midline. No tracheal deviation. NECK: Supple. SKIN: Negative for jaundice, clubbing, edema, pallor, or cyanosis. LUNGS: Clear to auscultation bilaterally. HEART: Regular rate and rhythm. Distal pulses intact. ABDOMEN: Soft, nondistended, and nontender. G-tube in place. No bleeding at the G-tube site. ADMIT: 01/30/2017 RM/LOC: 509 [facility] MR#: [id number] [address] [address] YESENIA PETERS [address] [place] [address] Consultation SEX: F AGE: 71 : 1945 LABORATORY DATA: Alkaline phosphatase 85, AST 30, ALT 35, and total bilirubin 0.6. White blood cell count 8.1. DIAGNOSTIC IMAGING: HIDA scan. Please see HPI. ASSESSMENT: Chronic cholecystitis versus biliary dyskinesia. PLAN: The patient has been admitted as an observation by Dr. Falcon. I have discussed with Dr. Farah the findings of the HIDA scan. The patient needs her gallbladder out, but we are just look at timing at the moment. Dr. Farah is going to get back to me later today when timing will be most appropriate to have the patient undergo surgery. In the meantime, I have held her G-tube medications except for Cogentin and discussed the risks, alternatives, benefits, and complications of laparoscopic cholecystectomy with the patient and her family, who were present during my whole assessment. They are in agreement of this plan, had all their questions answered, would like to proceed. I will wait until Dr. Farah's final decision on timing and hopefully proceed with surgery then. Thank you for the consultation of this patient. KITA Arita / Dyllan Farah MD / geraldine JOB #: [id number] CC: Alvaro Falcon, Attending Physician Alvaro Falcon, Family Physician
--- NOTE | 2017-02-06 00:30 | DS ---
ADMIT: 01/30/2017 RM/LOC: [address] [facility] MR#: [id number] 26[address] [facility] [address] [place], [place] [address] YESENIA PETERS [address] [address] Discharge Summary SEX: F AGE: 71 : 1945 ADMISSION DATE: 01/30/2017 DISCHARGE DATE: 02/04/2017 DIAGNOSES: 1. Biliary dyskinesia, status post lap cholecystectomy. 2. Nausea vomiting. 3. Gastroparesis. 4. Mixed connective tissue disease. 5. Malnutrition-on tube feedings for supplemental nutrition. 6. Right upper extremity DVT (deep venous thrombosis). 7. Gastroesophageal reflux disease. 8. Extrapyramidal side effects (tongue movement). CONSULT: 1. Surgery. 2. Rheumatology. PROCEDURE: 1. HIDA 01/30/2017. 2. Lap cholecystectomy 01/31/2017. REASON FOR HOSPITALIZATION: Persistent nausea vomiting and feeling poorly. See dictated H and P. LABORATORY AND X-RAY DATA: White count 139, potassium down to 2.9 final value 3.8, chloride 106, CO2 24, BUN 10, creatinine 0.5, calcium 8.3, total bilirubin 0.9, total protein 6.3, albumin 2.8, alkaline phosphatase 72, AST 25, ALT 34, magnesium 1.9. GFR was 98, corrected calcium was 9.2. CRP was 1.73. White count 7.6, hemoglobin 11.7, platelet count 244. Urine is unremarkable. On the she actually grew some gram-negative rods but unfortunately they are not identified yet. They were only 10,000 CFUs. Gallbladder pathology showed chronic cholecystitis and cholelithiasis. HIDA scan with 0% ejection fraction. COURSE IN HOSPITAL: Yesenia was admitted with refractory nausea and vomiting. Had not been home very long. She is pretty miserable. HIDA scan performed consistent with biliary dyskinesia. She was hydrated and nutritional support was added. Surgeon saw. Underwent a laparoscopic on 01/31/2017. She had a lap cholecystectomy performed. She did well with this. Postop, the diet was gradually advanced but did cause some nausea. Unable to advance too rapidly which is not a surprise. She continued to feel better on a daily basis. Getting stronger and was anxious to return home. On 02/04/2017, she was dismissed to home with the assistance of [facility] which has seen her previously and continuing her tube feedings with [facility] infusion. DISCHARGE MEDICATIONS: At the time of discharge her medications include: 1. Xarelto 20 mg daily. 2. Symbicort 80/4.5, one puff b.i.d. 3. Colace suspension 100 mg b.i.d. ADMIT: 01/30/2017 RM/LOC: [address] [facility] MR#: [id number] [address] [address] YESENIA PETERS [address] [place] [address] Discharge Summary SEX: F AGE: 71 : 1945 4. Omeprazole suspension 20 mg daily. 5. Cogentin 1 mg daily. 6. Flonase daily p.r.n. 7. Ondansetron ODT 4 mg every six p.r.n. 8. Proventil MDI two puffs q.4h p.r.n. 9. Clonazepam 1 mg at bedtime p.r.n. 10.Tube feeding is Promote at 30 mL/h which will be increased by 10 mL/h daily until we reach a goal of 50 mL/h. Water flush per dietitian. DISCHARGE INSTRUCTIONS: She will have an appointment with Dr. Falcon next week. Overall prognosis is fair. Time spent is 50 minutes. Alicia Tristan MD/ nhung JOB #: [id number] CC: Alvaro Falcon MD, Attending Physician Alvaro Falcon MD, Family Physician MD Macario Reece MD Steven G Schneider, MD
--- NOTE | 2017-02-07 08:50 | HP ---
ADMIT: 01/30/2017 RM/LOC: 509 [facility] MR#: [id number] 2620 [facility] [address] [place], [place] [address] YESENIA PETERS [address] [address] History and Physical SEX: F AGE: 71 : 1945 DATE OF SERVICE: CHIEF COMPLAINT: Nausea and vomiting. HISTORY OF PRESENT ILLNESS: Yesenia Duarte is a very nice 71-year-old female, who is very well known to my service. She does also see Rheumatology in my clinic secondary to mixed connective tissue disease. Yesenia had been struggling with a hiatal hernia as well chronic blood loss secondary to her large hiatal hernia. She did undergo an elective gastropexy and laparoscopic hiatal hernia repair on 12/13/2016. She was also seen by my partner, Dr. Conrado Verde for general medical management postoperatively, and did discharge on 12/14. The patient was seen again on 12/17 as well as 01/03 secondary to nausea and vomiting and again on 01/03. She was seen in my clinic on 01/06 by my nurse practitioner, Neeru Ibarra. The patient did have refractory nausea and vomiting, and was then transitioned to [facility] for admission and evaluation. She was seen by the General Surgical services, and actually improved nicely with nausea and vomiting management. She was ultimately discharged to home. She returned to the emergency room on after being discharged five days prior. She did have nausea and vomiting. She was admitted by Dr. Pearce and care was transitioned to myself during hospitalization. She did undergo various evaluations during that hospitalization, evaluation for other potential alternate etiologies of her nausea and vomiting outside of retention of p.o. in her esophagus and stomach. She did receive consultation with Dr. Humphreys secondary to abnormal MRI of a potential some mastoid fluid. Did receive treatment for this. No evidence of active acute mastoiditis. However, we did complete empiric antibiotics secondary to findings of MRI. She did receive consultation by Dr. Galaviz as well as Dr. Farah. Discussed the placement of a tube to bypass her esophagus as barium swallow was noted to have retention of fluid in her esophagus. As well as, we did prove gastroparesis based on approximately 22% emptying at the end of the study. She was maintained on Reglan and various antiemetics through the hospitalization. However, she did develop some movement of her mouth and her tongue consistent concerning for extrapyramidal side effects. She was transitioned off the Reglan at that time and to erythromycin. However, patient was unable to afford this secondary to cost. She was maintained on some other antiemetics. She is actually doing very well, actually all day Monday up until Monday morning. She has had sudden onset of nausea. She had no fevers associated with this. No diaphoresis. She had no pain. She had no heralding symptoms she just started vomiting. The patient reports that she has been strictly PEG tube only and taking periodically ice chips in her mouth. When she did have emesis, that emesis consisted tube feeds. She was evaluated in [facility] with various laboratories. It appears that she was transferred to [facility] unclear what was beyond this transfer. However, she was transferred to Dr. Jeffers in the ER who looked at the patient and was concerned that did represent biliary colic and she was admitted to Dr. Verde. We evaluated at her bedside and she endorses the above history. She does have various episodes of emesis during our interview. Her two daughters are at bedside. We actually talked in detail about her history as well as plans going forward. ADMIT: 01/30/2017 RM/LOC: 509 [facility] MR#: [id number] 2620 [facility] [address] [place] [id number] YESENIA PETERS [address] [place] [address] History and Physical SEX: F AGE: 71 : 1945 PAST MEDICAL HISTORY: Reviewed and unchanged. FAMILY HISTORY: Reviewed and unchanged. SOCIAL HISTORY IS: Reviewed and unchanged. REVIEW OF SYSTEMS: Complete review of systems reviewed and per HPI. PHYSICAL EXAMINATION: VITAL SIGNS: Blood pressure is 167/91, pulse 89, respiratory rate is 12, temp is 97.4. She is on room air. GENERAL: She is alert and oriented x3. In no acute distress, only when she is vomiting. HEENT: Normocephalic and atraumatic. Extraocular movements intact. Pupils equally round and responsive to light. No nasal discharge. She does have extrapyramidal side effects with movement of her tongue. HEART: Regular rhythm and rate. LUNGS: Clear to auscultation on anterior nayak. I do not move her because she is quite nauseous after this episode of emesis while I was in the room. ABDOMEN: Soft, nontender, and nondistended. I really palpate vigorously in the right upper quadrant, she has no pain associated with this at all. No rebound. No guarding. She has positive bowel sounds. EXTREMITIES: No clubbing or cyanosis. She moves all of her extremities. She has no focal deficits. LABORATORY AND IMAGING DATA: CBC, CMP, Mag, phos, sedimentation rate, CRP are all pending here. She did have magnesium in outside hospital which was 1.6. She did receive some magnesium. Imaging since onset of her symptoms: CT scan 01/03; postoperative change of GE junction, thickened chavis of the esophagus, previous cholelithiasis, diverticulosis with no inflammation, and did have an ileus. Esophagram on 01/09; delayed emptying of the esophagus from a hiatal hernia with repair secondary to edema. On 01/15; repeat CT abdomen and pelvis, postoperative changes, mild dilation of the distal esophagus, fluid-filled, no abscess. On 01/15; gallbladder ultrasound, fatty infiltration of liver noted, cholelithiasis noted, no wall thickening, no fluid retention, no evidence of cholecystitis. MRI of the brain, no mass or no acute intracranial abnormality other than right mastoiditis fluid noted. Gastric emptying study, abnormal 25% at 4 hours, and on 01/29, she did have another repeat CT scan, which shows small hiatal hernia with wall thickening, cholelithiasis with no cholecystitis, diverticulosis, that is three CTs that she got in the span of one month in the ER. ASSESSMENT AND PLAN: 1. Chronic nausea and vomiting. 2. Gastroparesis. 3. Delayed gastric emptying from the esophagus. ADMIT: 01/30/2017 RM/LOC: 509 [facility] MR#: [id number] [address] [address] YESENIA PETERS [address] [place] [address] History and Physical SEX: F AGE: 71 : 1945 4. Right upper extremity deep vein thrombosis. 5. Mixed connective tissue disease. 6. Malnutrition. 7. Hypertension. 8. History of treated mastoiditis. 9. Extrapyramidal side effects. 10.Adjustment reaction. 11.Hypomagnesemia. I did have a long discussion with Yesenia as well as her two daughters. She has been in the hospital various times secondary to her nausea and vomiting. Current working diagnosis is gastroparesis as well as delayed gastric emptying from her esophagus. She does have a known gallstone with no thickening. No signs of infection, and she has no pain associated with onset of her nausea, her exam is benign, but with this known gallstone and concern that this could be contributing, we will go ahead and rule out with addition of a HIDA scan. I did discuss with them that management of her symptoms at this point are somewhat complicated by the fact that she has developed some extrapyramidal side affects from the antiemetics. She has also continued to have nausea despite aggressive intervention with placement of tube as well as scheduled antiemetic therapy. I discussed with them that I do feel that her primary symptoms are secondary to gastroparesis as well as delayed emptying of her esophagus. I did also discuss with her in detail about discussion I did have with have with General Surgery as well. At this point, I think from a primary care standpoint that as far as medical management of this, I believe that we are looking at our limitation for management despite aggressive medical management. She continued to have nausea and vomiting, but is experiencing extrapyramidal side effects secondary to therapy. I do feel at this point, we would consider gastroparesis specialist. She may need further intervention such as Botox injections versus other intervention such as stimulation with gastric pacing. They are appreciating of my opinions at this point. They are in agreement to proceed with a HIDA scan. We will go ahead and start her on Cogentin secondary to her extrapyramidal side effects. I will stop her Phenergan. I will stop her Compazine. I will stop her Zofran. I will go ahead and maintain her on Ativan and Decadron for her nausea at this time. I ADMIT: 01/30/2017 RM/LOC: 509 [facility] MR#: [id number] [address] [place] [phone] YESENIA PETERS [address] [place] [address] History and Physical SEX: F AGE: 71 : 1945 do have a Pharmacy consult for alternative antiemetics with lower rate of extrapyramidal side affects. They are currently doing a literature review right now. I will go ahead and proceed with a HIDA scan. I will maintain her on her Xarelto for her right upper extremity deep vein thrombosis. I will maintain her on PEG tube only, and no p.o. We will have Dr. Farah with General Surgery come see the patient as well as we will have Dr. Douglas have see the patient as well as secondary to mixed connective tissue disease if he feels there is a contributing factor. Discussed this plan with the patient, expressed understanding, agreeable to this and had no further questions. Alvaro Falcon MD/ geraldine JOB #: [id number] CC: Alvaro Falcon, Attending Physician Alvaro Falcon, Family Physician
[2017-02-07] MEDS ORDERED: KLONOPIN DPS1 MG PO (17:43)
[2017-02-07] MEDS ORDERED: FLONASE 0.05% D16 GM NS (17:43)
[2017-02-07] MEDS ORDERED: PROVENTIL HFA6.7 GM IH (17:43)
[2017-02-07] MEDS ORDERED: ZOFRAN ODT4 MG PO (17:43)
[2017-02-07] MEDS ORDERED: COLACE-DPS100 MG PO (17:44)
[2017-02-07] MEDS ORDERED: SYMBICORT80 MCG/6.9 IH (17:44)
[2017-02-07] MEDS ORDERED: XARELTO20 MG PO (17:44)
[2017-02-07] MEDS ORDERED: TYLENOL DPS325 MG PO (17:44)
[2017-02-07] MEDS ORDERED: PRILOSEC DPS20 MG GT (17:45)
[2017-02-07] MEDS ORDERED: COGENTIN DPS1 MG GT (17:45)
[2017-02-07] MEDS ORDERED: LORTAB LIQUID D15 ML GT (17:45)
--- NOTE | 2017-02-15 16:19 | CO ---
ADMIT: 01/30/2017 RM/LOC: 509 [facility] MR#: [id number] 2620 [facility] [address] [place], [place] [address] YESENIA PETERS [address] [address] Consultation SEX: F AGE: 71 : 1945 DATE OF CONSULTATION: 01/31/2017 ATTENDING PHYSICIAN: Alvaro Falcon CONSULTING PHYSICIAN: Dyllan Farah MD ADDENDUM: You can see full dictated consult by my PA Alvaro Leahy. Yesenia has been a very pleasant, complicating patient from the standpoint of back on 12/13/2016, I did a laparoscopic hiatal hernia repair. She basically had the majority of her stomach up in her chest. I did not actually do a Tello wrap on her, I basically brought her stomach down out of her chest and did a gastropexy. I did not tighten her whitley significantly and so been somewhat frustrated by this constant vomiting. Does not seem to be an obstructive type of thing before this nausea and then vomiting. We have known she had a gallstone and I have spent a lot of time visiting with her clinically, talking to her about pain, pain in the right upper quadrant. Things that would try to make me believe this has been her gallbladder and nothing has come from that. However, on this latest admission, they did a HIDA scan today at this point, with HIDA scan showing 0% ejection fraction. We are going to go ahead and proceed with laparoscopic cholecystectomy and hopefully this will solve some of her clinical issues that have been going on which is postprandial nausea. We have a PEG tube in to feed her, keep her nutrition up. Nothing else significant or different has changed from the exam history by KITA Arita. Dyllan Farah MD/ modl JOB #: [id number] CC: Alvaro Falcon, Attending Physician Alvaro Falcon, Family Physician
--- NOTE | 2017-02-15 16:19 | OR ---
ADMIT: 01/30/2017 RM/LOC: 509 [facility] MR#: [id number] 2620 [facility] [address] [place], [place] [address] YESENIA EPTERS [address] [address] Operative/Delivery Room Report SEX: F AGE: 71 : 1945 SURGERY DATE: 01/31/2017 SURGEON: Dyllan Farah MD PREOPERATIVE DIAGNOSES: 1. Chronic cholecystitis. 2. Cholelithiasis. POSTOPERATIVE DIAGNOSES: 1. Chronic cholecystitis. 2. Cholelithiasis. FINAL PATHOLOGY: Pending. PROCEDURE: Laparoscopic cholecystectomy. DIRECTIONAL DRILLER: KITA Arita, who was necessary for adequate exposure and retraction and completion of this case. ANESTHESIA: General endotracheal tube anesthesia. ESTIMATED BLOOD LOSS: 20 mL or less. SPECIMEN: Gallbladder and contents to Pathology. INDICATION FOR PROCEDURE: Please see H and P. After the risks, benefits, possible complications, and the alternatives have been explained, and informed consent had been obtained, the patient was taken back to the operating room, underwent general anesthesia, and the surgical field was prepped and draped in a sterile manner. A supraumbilical incision was made. The Veress needle was inserted. The abdomen was insufflated with CO2. Once there was adequate insufflation, a 5 mm port was placed. The camera was placed through this port site. Under direct visualization, then placed a 10 mm epigastric and two 5 mm right upper quadrant ports. The gallbladder was raised superiorly and anteriorly. Some adhesions were there, these were all slowly cleaned down, dissected out. The anterior artery that was clipped proximally, distally and divided. Then, the cystic duct that was dissected out, clipped proximally, distally, and divided. There was a small posterior artery then as well, that was clipped proximally, distally, and divided. The gallbladder was then slowly removed off the liver bed using electrocautery and Endo sandra, placed in an EndoCatch bag, removed through the epigastric port site. I irrigated and removed as much irrigation as possible. I inspected the liver bed, there was good hemostasis, clips were in good position. I then thoroughly expected what I could and actually had one of my partners come in to look and see because after I repaired this basically hiatal hernia on ADMIT: 01/30/2017 RM/LOC: 509 [facility] MR#: [id number] [address] [place], [place] [address] GONZALEZ PETERSTHIA Kavon [address] [place] [address] Operative/Delivery Room Report SEX: F AGE: 71 : 1945 Yesenia several weeks ago, she has had problems with eating, kind of worse gastroparesis, things of that nature. The gastropexy looks fine and the PEG tube was in good position. I do not see any issues or problems. I do not see as many adhesions as I would think. No signs of anything abnormal or out of place to where she should have any mechanical type obstructive type symptoms. Once I felt good about inspecting that, I injected 0.5% Marcaine for pain control. Closed the fascia of the epigastric port site with an 0-Polysorb suture using the suture passer. All the ports were removed. The skin was all closed with 4-0 Monocryl. She tolerated it well. She was extubated and taken to recovery room in stable and satisfactory condition. Dyllan Farah MD/ geraldine JOB #: [id number] CC: Alvaro Falcon, Attending Physician Alvaro Falcon, Family Physician Alvaro Falcon MD
== END 2017-02-04 15:50 | disposition home health service (06) | DRG 418 ==
LOC: ER 23:14 → 5MS 01-30 00:32
PROVIDERS: ADMIT Internal Medicine
PROC: 0FT44ZZ Resection of Gallbladder, Percutaneous Endoscopic Approach (ICD-10-PCS; principal; 2017-01-31)
DX: K82.8 Other specified diseases of gallbladder (principal); E46 Unspecified protein-calorie malnutrition; K80.10 Calculus of gallbladder with chronic cholecystitis without obstruction; K31.84 Gastroparesis; E83.42 Hypomagnesemia; M35.1 Other overlap syndromes; Z93.1 Gastrostomy status; R11.2 Nausea with vomiting, unspecified; I10 Essential (primary) hypertension; J45.909 Unspecified asthma, uncomplicated; K21.9 Gastro-esophageal reflux disease without esophagitis; M81.0 Age-related osteoporosis without current pathological fracture; F43.20 Adjustment disorder, unspecified; F32.9 Major depressive disorder, single episode, unspecified; F41.9 Anxiety disorder, unspecified; I73.00 Raynaud's syndrome without gangrene; M48.00 Spinal stenosis, site unspecified; D50.9 Iron deficiency anemia, unspecified; Z86.718 Personal history of other venous thrombosis and embolism

== ENCOUNTER 2017-02-05 12:34 | Inpatient (IN) | payer MEDICARE, MEDICAID ==
[~2017-02-05] VITALS: Ht 160 cm; Wt 70.7 kg
--- NOTE | ~2017-02-05 | HP ---
ADMIT: 02/05/2017 RM/LOC: 504 [facility] MR#: [id number] [address] [address] YESENIA PETERS [address] [place] [address] History and Physical SEX: F AGE: 71 : 1945 DATE OF SERVICE: CHIEF COMPLAINT: Intractable nausea and vomiting. HISTORY OF PRESENT ILLNESS: Yesenia is a very nice 71-year-old female, who is well known to my service. She does have a long history of long-standing hiatal hernia as well as mixed connective tissue disease and asthma. She did have some ulcers secondary to her long-standing hiatal hernia. She did see Dr. Dyllan Farah, did undergo an elective laparoscopic repair of the hiatal hernia and gastropexy on 12/13/2016. She was shortly thereafter discharged on 12/14. She did have two ER visits on 12/17, and again on 01/03. She was seen in admitted from my office on 01/06, secondary to intractable nausea and vomiting. She did remain hospitalized until 01/10. She was discharged to home. She returned to the ER on 01/15 with recurrent nausea and vomiting. She was maintained in the hospital, ultimately become diagnosed with gastroparesis as well as esophageal dysmotility with retention in her esophagus. She did have a PEG tube placed, and she was discharged to home on 01/27. On 01/30, she returned with nausea and vomiting as well as did have some extrapyramidal side affects from her antiemetics. She did have an ultrasound of her abdomen, which showed some cholelithiasis with no other findings. She did undergo a HIDA scan with 0%. Then, did have a laparoscopic cholecystectomy. She was ultimately discharged on 02/04. She was discharged to home. She states she was continuing her tube feeds. She did eat some chicken noodle soup, but it was felt that this was retained substernally. It felt like she had a large bubble. Shortly thereafter, she developed nausea and vomiting and had been vomiting for the last 8 hours. She was evaluated in the ER on the 02/05. The ER did speak to Dr. Alicia Tristan, whose is a [employer] documentation, they did speak directly to me. However, they did speak to Dr. Alicia Tristan, who did admit her to the floor. Her care is transitioned to myself at 0728 hours this morning, 02/06. I evaluated her by her bedside. She endorses the above history. She is nauseous at that time. No emesis in the room. She has no abdominal pain. She has no fevers. She has no blood or anything like that. She states that she does feel things are being stuck substernally when she did eat chicken noodle soup. However, she is presumably evacuated her esophagus, still has persistent nausea. She does have substantial improvement of her extrapyramidal side effects, however she is very frustrated with her continued nausea and vomiting. I do discuss what her wishes are at this time. There were some notes on the chart and she wishes to see a boatswain's mate per her son, Gustavo. She is not looking forward to a long transfer or traveling, but she does wish to see a boatswain's mate to see if there is anything else they can do to help her with her symptoms. I discussed that her working diagnosis at this time is gastroparesis as well as esophageal dysmotility with GERD. She did undergo a laparoscopic cholecystectomy for a potential contribution of biliary dyskinesia. However, she does continue to have persistent nausea and vomiting. She states she is taking all of her medications at home. She is doing oral tube feeds at home and she was not strictly n.p.o. She reports that she would do take some chicken noodle soup by mouth, which did feel as if that kind of sparked off all this nausea and vomiting. She has no abdominal pain to speak of at this ADMIT: 02/05/2017 RM/LOC: 504 [facility] MR#: [id number] [address] [place] [id number] YESENIA PETERS [address] [place] [address] History and Physical SEX: F AGE: 71 : 1945 time. PAST MEDICAL HISTORY: 1. Spinal stenosis. 2. Mixed connective tissue disease. 3. Iron-deficiency anemia. 4. History of hiatal hernia. 5. Osteopenia. 6. Raynaud's. 7. Hypertension. 8. Asthma. MEDICATIONS: 1. Fluticasone one spray daily as needed. 2. Ventolin 2 puffs every 4 hours as needed. 3. Zofran 4 mg every 6 hours as needed. 4. Clonazepam 1 mg daily as needed. 5. Symbicort 80/40 one puff twice daily. 6. Xarelto 20 mg daily. 7. Tylenol 650 mg every 4 hours as needed. 8. Colace 100 mg twice daily. 9. Omeprazole 20 mg daily. 10.Cogentin 1 mg daily. 11.Lortab liquid p.r.n. ALLERGIES: NO KNOWN MEDICAL ALLERGIES. FAMILY HISTORY: Father and mother both with history of unknown cancer. Two daughters are alive and well. One son alive and well, and one son is . SOCIAL HISTORY: She does not drink or smoke. She does not do drugs. She is very supportive with her family. She is overall a happy person. REVIEW OF SYSTEMS: Complete review of systems reviewed and noted per HPI. PHYSICAL EXAMINATION: VITAL SIGNS: Blood pressure initially 179/93, pulse 101, respiratory rate is 20, temperature is 98.1. She is on room air. Repeat labs on 169/49, pulse 95, respiratory rate is 16, temperature is 98.2. She is 98% on room air. GENERAL: She is alert and oriented x3. She is in no acute distress. She is uncomfortable with recurrent nausea. HEENT: Normocephalic and atraumatic. Extraocular movements intact. Pupils equally round and responsive to light. No nasal discharge. NECK: Supple. HEART: Regular. LUNGS: Clear to auscultation. ABDOMEN: Soft, nontender, and nondistended. No rebound. PEG is in place. ADMIT: 02/05/2017 RM/LOC: 504 [facility] MR#: [id number] [address] [address] YESENIA PETERS [place] [address] [place] [address] History and Physical SEX: F AGE: 71 : 1945 EXTREMITIES: No clubbing, cyanosis, or edema. LABORATORY DATA: UA with no evidence of urinary tract infection. Sodium 135, potassium 3.9, chloride is 100, bicarb is 27, BUN is 8, creatinine is 0.5, glucose 133, calcium is 8.5, total bilirubin 0.1, total protein is 6.9, albumin is 3.3, alkaline phosphatase 104, AST is 84, ALT is 100, lipase is 64. White blood cells are 9.7, hemoglobin is 12.9, platelets are 241. ASSESSMENT AND PLAN: 1. Intractable nausea and vomiting. 2. Esophageal dysmotility. 3. Gastroparesis. 4. Extrapyramidal side effects. 5. Malnutrition. 6. Hypertension. 7. Upper extremity deep vein thrombosis. 8. Gastroesophageal reflux disease. 9. Mixed connective tissue disease. 10.Asthma. The patient does have recurrent nausea and vomiting. She has had multiple admissions for over the last two months. She continues to have recurrent nausea and vomiting. She has a diagnosis of gastroparesis, esophageal dysmotility, and GERD. She did have some biliary dyskinesia and did undergo a laparoscopic cholecystectomy. She has developed some extrapyramidal side effects secondary to antiemetics, currently receiving Cogentin for some symptom relief. She actually did pretty well initially with discharge to home, however, did develop some nausea and vomiting with p.o. She previously on her last admission took no p.o., and still had return of her nausea and vomiting with emesis of tube feeds. She does have these known diagnoses following hiatal hernia repair and gastropexy. She has had multiple consultations here locally with our general surgeons as well as she did see a nurses aide as well. She did undergo imaging of her brain for alternate causes of her refractory nausea and vomiting. She had some mastoid fluid, but no evidence on ENT exam of actual mastoiditis, however, she did complete empiric treatment for this. She is maintaining hydration with her tube feeds. However, she does have some malnutrition with weight loss of approximately 20 pounds since this, her whole ideal weight is 148, now back up to 155. The patient does have continued refractory recurrent symptoms despite aggressive intervention. Some of this is limiting secondary to her extrapyramidal side effects. She as well as family does request specialty input with Gastroenterology. That is not a service that we can provide here at [facility], so we discussed transfer. The patient is not looking forward to the transfer but would like an opinion in regard to potential interventions or etiology of these recurrent symptoms. At this time, what we will do is go ahead and maintain her strictly n.p.o. except for tube feeds and medications ADMIT: 02/05/2017 RM/LOC: 504 [facility] MR#: [id number] [address] [place] [id number] YESENIA PETERS [address] [place] [address] History and Physical SEX: F AGE: 71 : 1945 per her PEG. We will follow up with some repeat laboratories now they were done yesterday in the ER. We will add back some p.r.n. Ativan IV as this seemed to help her nausea previously, add some p.r.n. clonidine for her blood pressure. Increase her antinausea regimen a little bit with discontinuing her Pepcid and put her back on Protonix. We will go ahead and repeat abdominal ultrasound, and a low air loss mattress to avoid bedsores with her weight loss. We will go and maintain her on her Cogentin. I have reached out to the [facility] and given appropriate information, and I do await contact back from them to discuss potential transfer for Gastroenterology. Discussed the plan with the patient, expressed understanding, is in agreement and had no further questions. Alvaro Falcon MD/ geraldine JOB #: [id number] CC: Alvaro Falcon, Attending Physician Alvaro Falcon, Family Physician
--- NOTE | 2017-02-06 16:00 | ER ---
ADMIT: 02/05/2017 RM/LOC: 504 [facility] MR#: [id number] [address] [address] YESENIA PETERS [address] [place] [address] Emergency Room Report SEX: F AGE: 71 : 1945 DATE: 02/05/2017 ADDENDUM: Please see my T-sheet for complete review of systems, past medical history, and physical exam. CHIEF COMPLAINT: Vomiting. HISTORY OF PRESENT ILLNESS: This is a 71-year-old female who presents to the Emergency Department with 8 hours duration of nausea and vomiting. The patient was discharged from [facility] yesterday after an extended stay for similar symptoms. Ultimately, diagnosed with gastroparesis when under HIDA scan and cholecystectomy during this visit. She was being treated with antiemetics, secondarily developed some extrapyramidal side effects. These medications were stopped, she was started on Cogentin. She was discharged to use Ativan and steroid for nausea prophylaxis. She does have a feeding to where she primarily does tube feeding. She states that the surgeon did tell her she could start some p.o. feedings after discharge. She did have some light chicken broth p.o. last night. She states this did not exacerbate her symptoms. She awoke this morning at 0900 hours with persistent nausea and vomiting. Denies any increased abdominal pain. She does have some soreness in the right upper quadrant secondary to the recent cholecystectomy on the 31 of January. She also does have history significant for hiatal hernia repair and gastropexy on December 13, 2016. 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 States her last bowel movement was yesterday, normal for her. No blood in her vomit. No diarrhea. Does have history of hypertension, however, currently not treated. COURSE IN THE EMERGENCY ROOM: GENERAL: The patient is seen and examined. VITAL SIGNS: Initial blood pressure 193/97, heart rate 87, respirations 22, temp 98.3, she is in mild amount of distress. She appears very anxious. NECK: Soft and supple. RESPIRATORY: No respiratory distress. Breath sounds are normal bilaterally. Heart is mildly tachycardic in the low 100. No murmurs, gallops, or rubs. ABDOMEN: There are some surgical incisions covered with Steri-Strips consistent with laparoscopic cholecystectomy. She does have some right upper quadrant tenderness, however, abdomen is soft. No guarding or rebound. No McBurney's point tenderness. She does have a feeding tube in place on the left side of her abdomen. No erythema or drainage about this either. SKIN: Warm and dry. EXTREMITIES: Nontender. No pedal edema. NEUROLOGIC: She is alert and oriented. LABORATORY DATA: CBC: White count 9.7, hemoglobin 12.9, hematocrit 38.5, platelets 241. Chemistry: Sodium 135, potassium 3.9, BUN 8, glucose 133, creatinine 0.5, lipase 64. AST and ALT are mildly elevated. UA was normal except for 1+ ketones, she was given 4 mg IV Zofran as well as 25 mg of Benadryl in the department, which did relieve her nausea for some time, however, re-examination. She is kind of back to where we started, kind of ADMIT: 02/05/2017 RM/LOC: 504 [facility] MR#: [id number] [address] [address] YESENIA PETERS [address] [place] [address] Emergency Room Report SEX: F AGE: 71 : 1945 spitting in the container, complaining of nausea. I did start her on normal saline at 150 per hour. As she failed to get any improvement in her nausea, I did call Dr. Alvaro Falcon today, who will admit the patient for further management of her nausea. IMPRESSION: 1. Nausea and vomiting. 2. Gastroparesis. 3. Status post cholecystectomy. 4. Mixed connective tissue disorder. 5. Upper extremity deep venous thrombosis, on chronic anticoagulation. DISPOSITION: The patient will be admitted to the hospital in the care of Dr. Alvaro Falcon for further evaluation and management of her nausea and vomiting. Questions sought and answered to the best of my ability and patient's satisfaction. Discharged to the floor in stable condition. KITA Hollins / Anuel Meyers MD / geraldine JOB #: [id number] CC: Alvaro Falcon MD, Attending Physician Alvaro Falcon MD, Family Physician
--- NOTE | 2017-02-07 08:50 | DS ---
ADMIT: 02/05/2017 RM/LOC: 504 [facility] MR#: [id number] 2620 [facility] [address] [place] [phone] YESENIA PETERS [address] [place] [address] Discharge Summary SEX: F AGE: 71 : 1945 ADMISSION DATE: 02/05/2017 DISCHARGE DATE: 02/06/2017 ATTENDING AT TIME OF DISCHARGE: Alvaro Falcon MD CONSULTATIONS: None. FINAL DIAGNOSES: 1. Intractable nausea and vomiting. 2. Esophageal dysmotility. 3. Gastroparesis. 4. Extrapyramidal side affects. 5. Malnutrition. 6. Hypertension. 7. Right upper extremity DVT (deep venous thrombosis). 8. GERD (gastroesophageal reflux disease). 9. Mixed connective tissue disease. 10.Asthma. REASON FOR ADMISSION: Please see H and P; however, briefly, patient is admitted secondary to intractable nausea and vomiting. HOSPITAL COURSE: Patient is admitted to the service of [facility] under the care of Dr. Alicia Tristan on February 05. The patient is a transition to my care on February 06 at 0728 hours. I do evaluate the patient at the bedside and do discuss plans of care. Family and patient requesting a specialty consultation with Gastroenterology. We cannot provide this here. Therefore, we did discuss options. We will plan to discharge her to the [facility] under the care of Dr. Patel, the hospitalist there who did accept her care and will need gastroenterology consultation. At this time, we do have an abdominal ultrasound pending secondary to mild elevation of her LFTs, and she is receiving some new orders of some IV Ativan for her nausea, as this seemed to actually improve her symptoms during her last hospitalization. I did discuss the patient's care starting on December [address] until her current admission today with Dr. Patel. Did discuss her laboratory findings as well as various diagnoses currently with which she is dealing as well as events that did lead up to her last hospitalization. We will go ahead and transfer the patient by ground ambulance to the [facility] for further evaluation and recommendations on intervention for her persistent nausea and vomiting. DISPOSITION: [facility]. DISCHARGE CONDITION: Stable. DISCHARGE MEDICATIONS: See medication reconciliation, reviewed and accurate. ADMIT: 02/05/2017 RM/LOC: 504 [facility] MR#: [id number] [address] [address] YESENIA PETERS [place] [address] [place] [address] Discharge Summary SEX: F AGE: 71 : 1945 DISCHARGE INSTRUCTIONS: Discharge to the [facility] to continue further evaluation of intractable nausea and vomiting, as well as recommendations for potential further management options for her gastroparesis, esophageal dysmotility and recurrent nausea and vomiting. I discussed this plan with the patient and family, who expressed understanding, was in agreement, and had no further questions. Thirty minutes spent on discharge activities of this patient. Alvaro Falcon MD/ naveen JOB #: [id number] CC: Alvaro Falcon MD, Attending Physician Alvaro Falcon MD, Family Physician
[2017-02-07] MEDS ORDERED: ZOFRAN ODT4 MG PO (17:43)
[2017-02-07] MEDS ORDERED: PROVENTIL HFA6.7 GM IH (17:43)
[2017-02-07] MEDS ORDERED: KLONOPIN DPS1 MG PO (17:43)
[2017-02-07] MEDS ORDERED: FLONASE 0.05% D16 GM NS (17:43)
[2017-02-07] MEDS ORDERED: XARELTO20 MG PO (17:44)
[2017-02-07] MEDS ORDERED: TYLENOL DPS325 MG PO (17:44)
[2017-02-07] MEDS ORDERED: SYMBICORT80 MCG/6.9 IH (17:44)
[2017-02-07] MEDS ORDERED: COLACE-DPS100 MG PO (17:44)
[2017-02-07] MEDS ORDERED: LORTAB LIQUID D15 ML GT (17:45)
[2017-02-07] MEDS ORDERED: COGENTIN DPS1 MG GT (17:45)
[2017-02-07] MEDS ORDERED: PRILOSEC DPS20 MG GT (17:45)
== END 2017-02-06 13:21 | disposition short-term general hospital (02) | DRG 392 ==
LOC: ER 12:34 → 5MS 14:42
PROVIDERS: ADMIT Internal Medicine
DX: R11.2 Nausea with vomiting, unspecified (principal); E46 Unspecified protein-calorie malnutrition; M35.1 Other overlap syndromes; K31.84 Gastroparesis; Z93.1 Gastrostomy status; G25.70 Drug induced movement disorder, unspecified; J45.909 Unspecified asthma, uncomplicated; M48.00 Spinal stenosis, site unspecified; K44.9 Diaphragmatic hernia without obstruction or gangrene; T45.0X5A Adverse effect of antiallergic and antiemetic drugs, initial encounter; M85.80 Other specified disorders of bone density and structure, unspecified site; I73.00 Raynaud's syndrome without gangrene; I10 Essential (primary) hypertension; K21.9 Gastro-esophageal reflux disease without esophagitis; K22.4 Dyskinesia of esophagus; Z86.718 Personal history of other venous thrombosis and embolism; Z79.01 Long term (current) use of anticoagulants

== ENCOUNTER 2017-02-20 00:17 | Emergency (ER) | payer MEDICARE, MEDICAID ==
--- NOTE | 2017-02-20 06:07 | ER ---
ADMIT: 02/20/2017 RM/LOC: ER [facility] MR#: [id number] 2620 [facility] [address] [place], [place] [address] YESENIA PETERS [address] [place] [address] Emergency Room Report SEX: F AGE: 71 : 1945 DATE: 02/20/2017 The patient is a 71-year-old female with complex medical history of gastroparesis, status post gastropexy; Tello fundoplication; recent cholecystectomy; and chronic GJ tube. Extensive evaluation recently at [facility], hospitalized February 06 through the . Returns tonight with persistent nausea, vomiting, similar to her chronic issue for the past 60 days. Normal bowel movement today. Denies any abdominal pain. Exam remarkable for nontoxic, afebrile female. GJ tube noted abdomen otherwise benign. Three-view abdomen shows no bowel obstruction. Gastrografin GJ tube study does show both ports in place. Normal CBC. CRP 0.31. BNP 723. Glucose 133. Lipase 88. AST 124, ALT 146. Lactic 1.2. Normal bilirubin, alk phosphatase. INR 1.77. Troponin 0.022. The patient was given Zofran 8 mg IV push twice. Phenergan 12.5 mg and Ativan 0.5 mg. Finally with resolution of vomiting, recommend Marinol in the future to be added to her Zofran. Follow up Dr. Falcon as scheduled. Hood Jeffers MD/ geraldine JOB #: [id number] CC: Hood Jeffers MD, Attending Physician Alvaro Falcon MD, Family Physician Alvaro Falcon MD
== END 2017-02-20 04:50 | disposition home or self-care (01) ==
LOC: ER 00:17
PROC: 0DH63UZ Insertion of Feeding Device into Stomach, Percutaneous Approach (ICD-10-PCS; principal; 2017-02-20)
DX: K31.84 Gastroparesis (principal); I10 Essential (primary) hypertension; M81.0 Age-related osteoporosis without current pathological fracture; K21.9 Gastro-esophageal reflux disease without esophagitis; Z86.718 Personal history of other venous thrombosis and embolism; Z79.01 Long term (current) use of anticoagulants; Z90.49 Acquired absence of other specified parts of digestive tract; Z79.899 Other long term (current) drug therapy

== ENCOUNTER → 2017-02-20 | Outpatient (CLI) | payer MEDICARE, MEDICAID ==
[~2017-02-20] MED LIST changes: +COGENTIN DPS1 MG GT; +COLACE-DPS100 MG PO; +LORTAB LIQUID D15 ML GT; +PRILOSEC DPS20 MG GT
== END | disposition home or self-care (01) ==
LOC: THER.SSS 17:05
DX: R11.10 Vomiting, unspecified (principal)

== ENCOUNTER 2017-03-08 21:22 | Emergency (ER) | payer MEDICARE, MEDICAID ==
--- NOTE | 2017-03-09 19:08 | ER ---
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 The patient states for the last 2 weeks, she has had experiencing nausea and vomiting. I also had been contacted by Dr. Falcon and also later on contacted Dr. Falcon about the patient, the patient states some days she has more nausea and vomiting, some days less and today she had more, the patient denies any abdominal pain. The patient denies any fever. PHYSICAL EXAMINATION: GENERAL: In the ER, the patient was afebrile, the patient was mildly anxious and moderate distress. VITAL SIGNS: Blood pressure was 150s/80s, heart rate was 110, and respiratory rate was in the mid 20s. HEAD AND NECK: The mucous membranes were not dry, the rest of the physical exam was normal. Neck is midline and soft. LUNGS: Normal breath sounds. HEART: Normal heart sounds without any murmurs. ABDOMEN: Soft, A GJ-tube in place without any erythema or discharge around it. The rest of the physical examination is also negative and noncontributory. After contacting Dr. Falcon per his advice, the patient's GJ tube was attached for interruptive suctioning, which did not resolve any fluid, but we were able to flush some fluid from both ports. Nausea was moderately controlled with Zofran 4 mg IV 3 times and also promethazine 12.5 mg IV. The patient received 1 L of normal saline bolus and received 1 mg of Ativan IV. Lab work was negative for any acute electrolyte imbalance, with sodium of 133 and potassium of 4.6, glucose 121, and creatinine was 0.6. The patient's vomiting was controlled and also, the patient's nausea was moderately controlled. The patient was discharged to home on return precautions, and follow up with the primary doctor as scheduled. Herve Velasco MD/ geraldine JOB #: [id number] CC: Herve Velasco MD, Attending Physician Alvaro Falcon MD, Family Physician
== END 2017-03-09 02:05 | disposition home or self-care (01) ==
LOC: ER 21:22
DX: K31.84 Gastroparesis (principal); I10 Essential (primary) hypertension; Z90.49 Acquired absence of other specified parts of digestive tract; Z79.899 Other long term (current) drug therapy

== ENCOUNTER → 2017-06-01 | Outpatient (CLI) | payer MEDICARE, MEDICAID | END | disposition home or self-care (01) | LOC: RAD.S 10:52 | PROC: 0D164ZA Bypass Stomach to Jejunum, Percutaneous Endoscopic Approach (ICD-10-PCS; principal; 2017-06-01) | DX: Z46.59 Encounter for fitting and adjustment of other gastrointestinal appliance and device (principal); K31.84 Gastroparesis ==